=== PATIENT | female | born 1955 | race Caucasian/White ===

== ENCOUNTER → 2017-09-23 11:47 | Outpatient (REF) | payer MEDICAID, SELFPAY | LOC: LBN 11:47 | PROVIDERS: PCP Nurse Practitioner Family; Visit Provider Nurse Practitioner Gerontology | DX: R30.0 Dysuria (principal) | CPT/HCPCS: 87086 ==

== ENCOUNTER 2017-11-04 10:55 | Outpatient (REF) | payer MEDICAID, SELFPAY | END 2017-11-04 11:15 | LOC: LBN 10:55 | PROVIDERS: PCP Nurse Practitioner Family; Visit Provider Internal Medicine | DX: N39.0 Urinary tract infection, site not specified (principal) | CPT/HCPCS: 87086 ==

== ENCOUNTER 2018-05-20 01:03 | Outpatient (CLI) | payer MEDICAID, SELFPAY ==
[2018-05-20 09:16] LABS: Hemoglobin A1C 5.5 % (4.5-6.2)
[2018-05-20 10:13] LABS: ALT 32 U/L (12-78); AST 25 U/L (15-37); Albumin 3.8 g/dL (3.4-5.0); Alkaline Phosphatase 59 U/L (46-116); Anion Gap 9.1 mmol/L (3-11); BUN 15 mg/dL (7-18); Bilirubin, Total 0.4 mg/dL (0.2-1.0); CO2 28.9 mmol/L (21.0-32.0); CREATININE 0.79 mg/dL (0.55-1.02); Calcium 9.4 mg/dL (8.5-10.1); Chloride 104 mmol/L (98-107); Cholesterol 156 mg/dL (50-200); Glucose 94 mg/dL (70-100); HDL Cholesterol 47 mg/dL (40-60); LDL CHOLESTEROL 93 mg/dL (<100); Potassium 3.9 mmol/L (3.5-5.1); Sodium 142 mmol/L (136-145); Total Protein 7.3 g/dL (6.4-8.2); Triglyceride 80 mg/dL (30-150)
== END 2018-05-20 01:23 ==
PROVIDERS: PCP Nurse Practitioner Family; Visit Provider Nurse Practitioner Family
DX: E78.5 Hyperlipidemia, unspecified (principal); I10 Essential (primary) hypertension
CPT/HCPCS: 36415; 80053; 80061; 83721; 83036

== ENCOUNTER 2019-04-15 16:43 | Outpatient (REF) | payer MEDICAID, SELFPAY ==
--- NOTE | 2019-04-17 16:00 | PAPFT_PTH ---
PATIENT: Pushpa Menchaca LOC: [facility] U#:[id number] AGE/SX: 64/F ROOM: RE04/15/[address]: Charisse Gallardo, PhD WASHATERIA ATTENDANT : 1955 BED: DIS: 04/15/2019 SPEC #: [id number] RECD: 04/18/19 18:19 STATUS: LYSSA RENeftali #: [id number] ROSANNE: 04/17/19 16:[address]: Charisse Gallardo DEPT: [facility] Cytology RECD BY: Jodi Montoya Tissues: 1 - CX/ENDOCX FOR PAP SMEARS Procedures: PAP THIN PREP/[facility] Screening HPV DNA PROBE Comments: [id number] (CHLAMYDIA/GC)
[2019-04-19 12:55] LABS: Chlamydia Result Negative (Negative); GC Result Negative (Negative)
== END 2019-04-15 17:03 ==
LOC: LBN 16:43
PROVIDERS: PCP Nurse Practitioner; Visit Provider Nurse Practitioner
DX: Z12.4 Encounter for screening for malignant neoplasm of cervix (principal); Z11.51 Encounter for screening for human papillomavirus (HPV); Z11.3 Encounter for screening for infections with a predominantly sexual mode of transmission
CPT/HCPCS: 87491; 87591; 88142; 87624

== ENCOUNTER 2020-04-27 04:29 | Outpatient (CLI) | payer MEDICAID, SELFPAY ==
--- NOTE | 2020-04-27 12:21 | DI.MAMMO_ITS ---
EXAM: MAMMO SCREENING CLINICAL HISTORY: screening,z12.39 TECHNIQUE: Mammograms were interpreted according to the usual protocol including computer analysis w [employer] CAD system, tomosynthesis and C-view imaging. COMPARISON: 2010 through 2017 FINDINGS: The breasts are composed of scattered fibroglandular densities, Breast Density category B. No suspicious masses or suspicious microcalcifications are seen. No skin thickening or abnormal axillary lymph nodes are seen. There has been no significant change from prior exams. IMPRESSION: BI-RADS Category 1, Negative mammogram Yearly screening mammography is recommended. Breast Density - Category B, scattered fibroglandular densities. A negative radiographic report should not delay biopsy if a dominant or clinically suspicious mass is present. Up to ten percent of cancers are not identified on mammography. A negative report may reinforce clinical impression. Adenosis and dense breasts may obscure an underlying neoplasm. False positive reports average 6 to 10%. Patient will receive a letter notifying them of these results.
== END 2020-04-27 04:49 ==
PROVIDERS: PCP Nurse Practitioner; Visit Provider Nurse Practitioner
DX: Z12.31 Encounter for screening mammogram for malignant neoplasm of breast (principal); I10 Essential (primary) hypertension
CPT/HCPCS: 36415; 77063; 77067; 82565; 84132

== ENCOUNTER 2020-06-18 03:28 | Outpatient (CLI) | payer MEDICAID, SELFPAY ==
[2020-06-18 13:34] LABS: ALT 23 U/L (14-59); AST 16 U/L (15-37); Albumin 3.9 g/dL (3.4-5.0); Alkaline Phosphatase 66 U/L (46-116); Amylase 43 U/L (25-115); Bilirubin, Direct 0.1 mg/dL (0.0-0.2); Bilirubin, Total 0.2 mg/dL (0.2-1.0); Total Protein 7.4 g/dL (6.4-8.2)
[2020-06-19 14:55] LABS: Helicobacter pylori Ag, Feces Negative (Negative)
== END 2020-06-18 03:29 | disposition home or self-care (01) ==
LOC: LBO 03:28
PROVIDERS: PCP Nurse Practitioner; Visit Provider Nurse Practitioner
DX: R10.13 Epigastric pain (principal); R10.11 Right upper quadrant pain; R10.12 Left upper quadrant pain
CPT/HCPCS: 36415; 80076; 87338; 82150

== ENCOUNTER 2020-06-22 04:21 | Outpatient (CLI) | payer MEDICAID, SELFPAY ==
--- NOTE | 2020-06-22 06:45 | DI.US_ITS ---
Exam(s) US ABDOMEN EXAM: US ABDOMEN CLINICAL HISTORY: LUQ AND RUQ abd pain,EPIGASTRIC PAIN TECHNIQUE: Ultrasound abdomen performed using standard protocol. COMPARISON: No exams were available for comparison FINDINGS: LIVER: 15.5 cm in length. Moderately increased echogenicity diffusely consistent with hepatic steato sis.. No focal liver lesions are seen.. GALLBLADDER: No evidence of cholelithiasis. There is a question of a minimal amount of sludge versus artifact. No evidence of wall thickening. No pericholecystic fluid identified. MCBRIDE'S SIGN: Negative. BILIARY SYSTEM: No intrahepatic or extrahepatic biliary ductal dilation. KIDNEYS: Kidneys are symmetric in size. No evidence of renal calculi. No evidence of hydronephrosis. No renal mass or cyst identified. PANCREAS: Normal where visualized. SPLEEN: Not enlarged. ABDOMINAL AORTA AND IVC: Visualized portions normal caliber. ASCITES: None seen. IMPRESSION: Moderate hepatic steatosis. Question of a small amount of sludge versus artifact. No evidence of st ones or acute cholecystitis. DATA REPOSITORY:
== END 2020-06-22 04:41 ==
PROVIDERS: PCP Nurse Practitioner; Visit Provider Nurse Practitioner
DX: R10.11 Right upper quadrant pain (principal); R10.12 Left upper quadrant pain; R10.13 Epigastric pain; K76.0 Fatty (change of) liver, not elsewhere classified
CPT/HCPCS: 76700

== ENCOUNTER 2020-09-17 06:34 | Day surgery (SDC) | payer MEDICAID, SELFPAY ==
--- NOTE | 2020-09-17 06:39 | W.COLOREPORT ---
Date of service: 09/17/20 Time of Service: :33 Colonoscopy Report Date of procedure: 09/17/20 Pre-op diagnosis general: Colon Cancer Screening Post-op diagnosis procedure note: other (diverticulosis) Procedure: Colonoscopy Surgeon: Shayna Mario Anesthesia Type: General:No Airway (ASA 2/Gene Lakhani, PATRICK) Estimated blood loss (mL): 0 Pathology: none sent Complications: None Disposition: same day Indications: The patient is here for Colonoscopy pre-op. Her last screening was in 2010 and was remarkable for hyperplastic polyp. She has no family history of colon cancer. She reports a change in bowel habits, that include bouts of diarrhea 1-2x/wk. -Discussed colonoscopy bowel prep as well as the procedure. Discussed possible complications of the procedure to include bleeding, pain, perforation, missed small lesion/polyp, sore throat, aspiration and adverse reaction to the medications. Questions were answered to patient?s satisfaction. No guarantees were implied or given. Prep: Miralax/Dulcolax Procedure Start Time: Procedure End Time: :51 Retraction Time: 8 minutes Findings: Sigmoid diverticulosis Procedure Description: After informed consent was obtained the patient was taken to the procedure room and placed in a left decubitous position. Monitors were applied and a time out was done. The patients name, date of , procedure, allergies to medications and metal in their body was reviewed. The patient was then sedated. Once sedated and comfortable a rectal exam was done. External exam was normal. Internal exam revealed a normal sphincter tone and no palpable masses. The scope was then introduced and retro-flexed. No internal hemorrhoids, polyps or masses were identified on retro-flexion. The scope was then advanced to the cecum without difficulty. The ileocecal vlave and appendiceal orifice were identified. The prep was good. The scope was then slowly retracted over 8 minutes back into the rectum. There were no polyps. There was moderate sigmoid diverticulosis noted. The scope was removed and the patient was woken up and taken back to Same day surgery in stable condition. The patient tolerated the procedure well and there were no immediate complications. Follow up: The patient should follow up in 10 years unless they develop changes in bowel habits or other new gastrointestinal complaints.
--- NOTE | 2020-09-17 06:41 | W.PM.DSUDISC ---
Discharge Plan Disposition Patient Disposition: HOME Condition: Good Discharge Details Reason For Visit: Colonoscopy Attending Provider: Shayna Mario Primary Care Provider: Charisse Gallardo Home Meds and New Rx's Prescriptions: Continued multivitamin Tablet 1 tab PO Q OTHER DAY RF: 0 tolterodine [Detrol LA] 2 mg capsule,extended release 24hr 2 mg PO DAILY Qty: 90 RF: 4 prochlorperazine 25 mg suppository 25 mg PA BID PRN (Reason: nausea and vomiting) Qty: 6 RF: 0 ascorbic acid (vitamin C) 500 mg capsule 500 mg PO DAILY RF: 0 Excedrin Extra Strength 250-250-65 mg tablet 1 tab PO ONCE RF: 0 rizatriptan 10 mg tablet,disintegrating See Rx Instructions PO .COMPLEX MDD 2 tabs Qty: 30 RF: 4 hydrochlorothiazide 25 mg tablet 25 mg PO DAILY Qty: 90 RF: 3 loratadine 10 mg tablet 10 mg PO DAILY PRN (Reason: allergy symptoms) Qty: 90 RF: 4 lisinopril 30 mg tablet 30 mg PO DAILY Qty: 90 RF: 4 Discontinued polyethylene glycol 3350 17 gram/dose powder 238 g PO ONCE Qty: 238 RF: 0 bisacodyl [Dulcolax (bisacodyl)] 5 mg tablet,delayed release (DR/EC) 5 mg PO ONCE Qty: 4 RF: 0 Discharge Instructions Instructions: Diverticulosis (DC) Additional Instructions: Findings: Diverticulosis Follow up: 10 years Please call if you develop: fevers >101.5 Nausea or Vomiting Abdominal pain that is not transient Rectal bleeding that is more then a tbsp A hard abdomen and inability to pass gas DAY SURGERY UNIT POST ENDOSCOPY INSTRUCTIONS Instructions for everyone who is given Anesthesia: For your safety, please do the following for the next 24 Hours: a. Do not drive or operate dangerous equipment b. Do not drink alcohol beverages or use any recreational drugs for the first 24 hours or while taking pain medications. The medications in your body may have a reaction that can be dangerous. c. Do not make any important decisions or sign any important papers 1. Generally there are no restrictions on your activity after a day or so has gone by, but you may feel a bit fatigued for a few days. 2. After you arrive home you may have a light meal and return to a normal diet as you can tolerate it without feeling sick to your stomach. 3. After surgery, you may feel pain or discomfort. This should be only transient, but if it persists please contact your doctor. 4. If there are any questions regarding the findings of your procedure, please feel free to contact your doctor. 6. If you are unable to contact your doctor with a problem, contact the hospital at [phone]. 7. Continue all your regular medications unless directed otherwise. I understand the above instructions and have no questions. Signature of Patient or Responsible Adult Escort Date/Time Name of Responsible Adult Escort Signature of Nurse Date/Time Activity:: Activity as Tolerated Diet:: high fiber diet Discharge Orders Discharge Orders: Discharge Order (Routine); Ordered 09/17/20 Ordered By: Shayna Mario
[2020-09-17 06:57] VITALS: BP 140/87; PULSE 74; RESP 16; TEMP 36.2; O2SAT 97
--- NOTE | 2020-09-17 07:01 | W.ANESPRE ---
General Info Date of Service Date Performed: 09/17/20 Height: 5 ft 4 in Weight: 77.791 kg Body Mass Index (BMI): 29.4 Surgical Procedure: Operation Date: 09/17/20 07:35 Proposed Procedures Side Surgeon p Colonoscopy Shayan Mario MD Meds Allergies and Home Medications Allergies Allergy/AdvReac Type Severity Reaction Status Date / Time meperidine HCl [From Demerol] AdvReac Severe VOMITING Verified 09/17/20 06:52 sumatriptan [From Imitrex] AdvReac Intermediate heart Verified 09/17/20 06:52 pounding sumatriptan succinate AdvReac Intermediate heart Verified 09/17/20 06:52 [From Imitrex] pounding naratriptan AdvReac Mild arm Verified 09/17/20 06:52 weakness and fatigue Home Medication Medication Instructions Recorded multivitamin 1 tab PO Q OTHER DAY tab 09/30/18 loratadine 10 mg tablet 10 mg PO DAILY PRN #90 tab 09/30/19 prochlorperazine 25 mg rectal 25 mg OR BID PRN #6 ea 04/19/20 suppository tolterodine 2 mg capsule,extended 2 mg PO DAILY #90 cap 04/30/20 release 24 hr hydrochlorothiazide 25 mg tablet 25 mg PO DAILY #90 tab 07/31/20 rizatriptan 10 mg disintegrating See Rx Instructions PO .COMPLEX 07/31/20 tablet #30 tab MDD 2 tabs lisinopril 30 mg tablet 30 mg PO DAILY #90 tab 08/02/20 ascorbic acid (vitamin C) 500 mg 500 mg PO DAILY 08/23/20 capsule [id number]-[id number]-ipuxymnz 250 1 tab PO ONCE 08/23/20 mg-250 mg-65 mg tablet Current Visit Medications: Current Medications Generic Name Dose Route Start Last Admin Trade Name Freq PRN Reason Stop Dose Admin Hyoscyamine Sulfate 0.125 mg 09/17/20 06:42 Hyoscyamine 0.125 Mg Sl/Oral/Chew SL DIRECTED PRN Ringer's Solution 1,000 mls @ 80 mls/hr 09/17/20 06:00 IV 10/14/20 23:59 INFUSION FOR[facility] IV Miscellaneous Supplies 1 each 09/17/20 06:00 Iv Access IV 10/14/20 23:59 DIRECTED [facility] Ondansetron HCl 4 mg 09/17/20 06:42 Ondansetron 4 Mg/2 Ml Vial IVP Q4H PRN PRN Nausea / Vomiting Sodium Chloride 0 ml 09/17/20 06:00 Normal Saline Flush 10 Ml Syr IV 10/14/20 23:59 PRN PRN Sodium Chloride 0 ml 09/17/20 06:00 Normal Saline 10 Ml Vial IJ 10/14/20 23:59 DIRECTED PRN Sterile Water 0 ml 09/17/20 06:00 Water,Injection,Sterile 10 Ml Vial IJ 10/14/20 23:59 DIRECTED PRN PFSH Active Problems Active Problems: Problem Status Onset Code Tendinitis, de Quervain's M65.4 Migraine headache G43.909 Essential hypertension I10 Posterior vaginal wall prolapse N81.6 Medical History Medical History Chronic low back pain Essential hypertension Exercise-induced asthma Hyperlipidemia Migraine headache Pancolonic diverticulosis Posterior vaginal wall prolapse MENDOZA (stress urinary incontinence, female) Surgical History Surgical History History of bilateral tubal ligation (~10/2004) History of suburethral sling procedure (~05/2003) By Dr. Kapoor S/P colonoscopy (08/09/10) Tobacco Smoking/Tobacco Use Status: Never Passive smoking exposure: Yes Second hand exposure: Yes Alcohol Alcohol Intake: current Alcohol intake frequency: a few times a month Alcohol type: beer and wine Substance Use Substance use: Never Substance use type: does not use Prental History History 6 Para Hx # Term Pregnancies Multiple births Hx # Pregnancies Ectopic pregnancies AB induced Hx Number of Living Children 5 AB spontaneous 1 Vital Signs and Lab Results Lab Results Blood Type / Crossmatch: No Data to Display Complete Blood Count: No Data to Display Complete Metabolic Panel: No Data to Display Liver Function Panel: No Data to Display Coagulation Panel: No Data to Display Cardiac Panel: No Data to Display Arterial Blood Gas: No Data to Display Venous Blood Gas: No Data to Display Pancreas Panel: No Data to Display Thyroid Panel: No Data to Display Infectious Disease: No Data to Display Blood Cultures: No Data to Display Toxicology Panel: No Data to Display Anesthesia Assessment and Plan Anesthesia History Personal History: No History of Anesthesia Complications Family History: No Family History of Anesthesia Complications Exercise Tolerance Exercise Tolerance: Metabolic Equivalents>4 Pertinent Negatives Pertinent Negatives: No Symptoms of GERD Cardiac & Pulmonary Exam Cardiac Exam: Normal S1/S2 Heart Sounds Pulmonary Exam: Clear Bilateral Breath Sounds Airway Exam Known Difficult Airway: No Mallampati Class: 2 Mouth Opening: Normal (> 3cm) Thyromental Distance: Greater than 3 cm Neck Range of Motion: Full ROM Neck Circumference: Normal Teeth Condition: Normal Dentition ASA Classification ASA Score: ASA 2 Emergency Case?: No NPO Status NPO Status: NPO Clears >2 hours, Solids >8 hours Anesthesia Plan Resuscitation Status: Full Code Anesthesia Technique: General Anesthesia Airway Planned: Natural Airway Monitors Used: Standard Monitors
[2020-09-17] MEDS: Lactated Ringers 1,000 ML 80 ML IV (07:15)
[2020-09-17 07:21] VITALS: BMI 29.4
[2020-09-17 07:56] VITALS: BP 131/69; PULSE 74; RESP 16; TEMP 36.4; O2SAT 95
--- NOTE | 2020-09-17 08:18 | W.ANESPOSTOP ---
Postoperative Evaluation Date, Time and Location Date Performed: 09/17/20 Time Performed: 08:00 Patient Location: Day Surgery Unit Vital Signs Most Recent Imported Vital Signs: Most Recent Vital Signs Temp Pulse Resp BP Pulse Ox 36.4 C L 74 16 131/69 95 09/17/20 07:56 09/17/20 07:56 09/17/20 07:56 09/17/20 07:56 09/17/20 07:56 Pain Score Most Recent Pain Score: Most Recent Pain Score Pain Level 0 09/17/20 07:56 Assessment Mental Status: Awake (Alert & Oriented to Patient Baseline) Airway and Respiratory Function: Patent airway with normal (patient baseline) respiratory exam Cardiovascular Function: Hemodynamically Stable Hydration Status: Adequately Hydrated Nausea & Vomiting: No Nausea or Vomiting Pain: Pt. Denies Any Pain Peripheral Nerve Block: Patient did not receive a nerve block
[2020-09-17 08:29] VITALS: BP 131/69; PULSE 72; RESP 18; TEMP 36.3; O2SAT 96
== END 2020-09-17 08:50 | disposition home or self-care (01) ==
PROVIDERS: PCP Nurse Practitioner; Visit Provider Surgery
PROC: 0DJD8ZZ Inspection of Lower Intestinal Tract, Via Natural or Artificial Opening Endoscopic (ICD-10-PCS; CPT 45378; principal; 2020-09-17 07:30)
DX: Z12.11 Encounter for screening for malignant neoplasm of colon (principal); K57.30 Diverticulosis of large intestine without perforation or abscess without bleeding
CPT/HCPCS: 45378

== ENCOUNTER → 2021-05-01 10:29 | Outpatient (BNVA) | payer MEDICARE, MEDICAID, SELFPAY | PROVIDERS: PCP Family Medicine; Referring Provider Nurse Practitioner; Visit Provider Nurse Practitioner Gerontology | DX: N39.41 Urge incontinence (principal) | CPT/HCPCS: 99214 ==

== ENCOUNTER 2021-05-28 02:19 | Outpatient (CLI) | payer MEDICARE, MEDICAID, SELFPAY ==
[2021-05-28 11:22] LABS: Anion Gap 7.1 mmol/L (3-11); BUN 14 mg/dL (7-18); CO2 29.9 mmol/L (21.0-32.0); CREATININE 0.8 mg/dL (0.55-1.02); Calcium 9.2 mg/dL (8.5-10.1); Chloride 104 mmol/L (98-107); Glucose 125 mg/dL (74-106); Potassium 3.8 mmol/L (3.5-5.1); Sodium 141 mmol/L (136-145)
[2021-05-28 11:35] LABS: Calculated LDL 95 mg/dL (<100); Cholesterol 189 mg/dL (<200); HDL Cholesterol 47 mg/dL (40-60); Triglyceride 238 mg/dL (<150)
== END 2021-05-28 02:20 | disposition home or self-care (01) ==
LOC: LBO 02:19
PROVIDERS: PCP Family Medicine; Visit Provider Family Medicine
DX: I10 Essential (primary) hypertension (principal)
CPT/HCPCS: 36415; 80048; 80061

== ENCOUNTER 2021-09-27 11:13 | Inpatient (IN) | payer MEDICARE, MEDICAID, SELFPAY ==
[2021-09-27] VITALS (88 sets, daily range): BP systolic 55–187; BP diastolic 39–131; PULSE 74–116; RESP 10–39; TEMP 35.3–37.4; O2SAT 90–98; BMI 28.3
--- NOTE | 2021-09-27 11:15 | RT.EKG_ITS ---
APPROVED REPORT Exam: Resting ECG Reason for Exam: dizziness Patient Location: E HR:107 bpm ECG Measurements Heart Rate 107 AXIS IL 140 P 62 QRSd 131 QRS -12 QT 367 T 144 QTc 490 Conclusion Sinus tachycardia...rate> 99 Probable left atrial enlargement...P >50mS, <-0.10mV V1 Left bundle branch block...QRSd>120, broad/notched R. Sinus. LBBB. No STEMI. No old EKG to compare. I have reviewed and interpreted ECG and agree with software generated interpretation.
[2021-09-27] MEDS: Ondansetron 4 MG/2 ML VIAL IVP ×2 (11:42→22:50)
[2021-09-27] MEDS: Pantoprazole 40 MG VIAL 80 MG IVP (11:46)
--- NOTE | 2021-09-27 11:48 | ED.GENADUL_ITS ---
Discharge Plan Disposition Patient Disposition: [facility] INPATIENT Condition: Critical Discharge Details Clinical Impression: Acute upper GI bleeding Admit Date/Time: 09/27/21 14:02 Admit Provider: Sharon Manley Attending Provider: Sharon Manley Primary Care Provider: Radha Britton ED Provider: Deborah Hansen Discharge Data Discharge Date/Time-TO BE ENTERED AT DEPARTURE: 09/27/21 13:38 Medical Decision Making 1120 -- 66yo F with a history of migraines, hypertension and GERD presents with hematemesis since 1030 this am. Denies any history of anticoagulation. She does admit to upset stomach this morning prior to onset of vomiting. Nursing reported that patient vomited dark red blood and had a near syncopal episode in triage. Heart rate 110s. Blood pressure 145/114. Vomitus with gastroccult positive for blood. Heart rate 110s. Oxygen saturation 97% on room air. She appears comfortable and answering questions appropriately. Blood pressure 160/92. Her abdomen is soft and nontender. Differential diagnosis includes PUD, varices, esophagitis. Will obtain screening labs. Discussed with radiologist and cleared for IV contrast CT chest/abdomen/pelvis. Will order IV Zofran and IV Protonix. Will start normal saline infusion at 150 cc/hr. 1150 -- nursing informed that patient's blood pressure now more hypotensive at 96/49. Patient is feeling tired and weak. Will order 2 units of uncrossed mat ched blood. 1200 -- Pt became significantly hypotensive with a systolic blood pressure as low as 55. At this point she was significantly symptomatic, diaphoretic and near syncopal. Case discussed with Dr. Manley who requested rapid infuser. She is requesting 1 g of TXA which was ordered. She will come to the ED to see patient. 1220 -- BP improving. 120/63. Patient reports she feels better. Dr. Manley will take patient to the OR for upper endoscopy. Pt endorses that she takes 4 tabs of Excedrin daily which contains 325mg aspirin in each tab for several years for migraines. 1230 -- BP 132/77. Patient endorses she continues to feel better, skin color improved. Medical Records Medical records reviewed: Yes I reviewed the patient's medical records. Imaging Data Radiologic Study: Radiologist's impression: XR PORTABLE CHEST AP CLINICAL HISTORY:? vomiting blood, r/o free air TECHNIQUE:? 2D digital imaging was performed. COMPARISON:? No exams were available for comparison FINDINGS: LUNGS: Clear. No pleural abnormality seen. HEART: Normal. AORTA: Normal. BONES: Unremarkable for age.? Soft tissues: Unremarkable. IMPRESSION: No acute? findings. Lab Data Lab results reviewed: Yes I reviewed the patient's lab results. Labs: Laboratory Tests Range/Units 09/27/21 09/27/21 09/27/21 11:40 11:40 11:40 WBC (4.4-10.8) 10^3/uL 13.15 H RBC (3.93-5.22) 10^6/uL 4.66 Hgb (11.2-15.7) g/dL 13.6 Hct (36.0-46.0) % 39.8 MCV (80-95) fL 85 MCH (27.0-33.0) pg 29.2 MCHC (32.0-36.0) % 34.2 RDW (11.7-14.6) % 12.3 Plt Count (130-400) 10^3/uL 399 MPV (8.0-11.0) fL 9.4 Immature Gran % 0.4 Neutrophils % 61.6 Lymphocytes % 25.0 Monocytes % 7.0 Eosinophils % 5.7 Basophils % 0.3 Nucleated RBC % (0.0-0.3) % 0.0 Absolute Neutrophils (1.2-6.7) 10^3/uL 8.10 H Absolute Lymphocytes (1.2-3.4) 10^3/uL 3.29 Absolute Monocytes (0.1-0.8) 10^3/uL 0.92 H Absolute Eosinophils (0.0-0.7) 10^3/uL 0.75 H Absolute Basophils (0.0-0.2) 10^3/uL 0.04 PT (9.3-11.0) sec 10.2 INR (0.9-1.1) 1.0 APTT (21.0-27.5) sec 19.9 L Sodium (136-145) mmol/L 142 Potassium (3.5-5.1) mmol/L 3.9 Chloride (98-107) mmol/L 104 Carbon Dioxide (21.0-32.0) mmol/L 26.4 Anion Gap (3-11) mmol/L 11.6 H BUN (7-18) mg/dL 18 Creatinine (0.55-1.02) mg/dL 0.9 Estimated GFR/1.73 m2 (mL/min/1.73m2) >= 60.00 Glucose (74-106) mg/dL 166 H Calcium (8.5-10.1) mg/dL 8.8 Magnesium (1.8-2.4) mg/dL 1.8 Total Bilirubin (0.2-1.0) mg/dL 0.3 AST (15-37) U/L 19 ALT (14-59) U/L 21 Alkaline Phosphatase (46-116) U/L 55 Troponin I (<or=60) ng/L < 50 Total Protein (6.4-8.2) g/dL 7.0 Albumin (3.4-5.0) g/dL 3.5 COVID-19 Source SARS-CoV-2 (PCR) (Negative) Patient ABO/Rh Antibody Screen Crossmatch Range/Units 09/27/21 09/27/21 11:40 11:58 WBC (4.4-10.8) 10^3/uL RBC (3.93-5.22) 10^6/uL Hgb (11.2-15.7) g/dL Hct (36.0-46.0) % MCV (80-95) fL MCH (27.0-33.0) pg MCHC (32.0-36.0) % RDW (11.7-14.6) % Plt Count (130-400) 10^3/uL MPV (8.0-11.0) fL Immature Gran % Neutrophils % Lymphocytes % Monocytes % Eosinophils % Basophils % Nucleated RBC % (0.0-0.3) % Absolute Neutrophils (1.2-6.7) 10^3/uL Absolute Lymphocytes (1.2-3.4) 10^3/uL Absolute Monocytes (0.1-0.8) 10^3/uL Absolute Eosinophils (0.0-0.7) 10^3/uL Absolute Basophils (0.0-0.2) 10^3/uL PT (9.3-11.0) sec INR (0.9-1.1) APTT (21.0-27.5) sec Sodium (136-145) mmol/L Potassium (3.5-5.1) mmol/L Chloride (98-107) mmol/L Carbon Dioxide (21.0-32.0) mmol/L Anion Gap (3-11) mmol/L BUN (7-18) mg/dL Creatinine (0.55-1.02) mg/dL Estimated GFR/1.73 m2 (mL/min/1.73m2) Glucose (74-106) mg/dL Calcium (8.5-10.1) mg/dL Magnesium (1.8-2.4) mg/dL Total Bilirubin (0.2-1.0) mg/dL AST (15-37) U/L ALT (14-59) U/L Alkaline Phosphatase (46-116) U/L Troponin I (<or=60) ng/L Total Protein (6.4-8.2) g/dL Albumin (3.4-5.0) g/dL COVID-19 Source Nasal/Nares SARS-CoV-2 (PCR) (Negative) Negative Patient ABO/Rh A Positive Antibody Screen NEGATIVE Crossmatch See Detail ECG Data Attestation: I personally reviewed and interpreted this ECG (s) as follows: Interpretation: Rate of 107, sinus, left bundle branch block, no stemi, no old EKG to compare. HPI General Mode of arrival: ambulatory . Date/Time Provider Initiated Documentation: 09/27/21 11:25 . Limitations to Documentation: no limitations . Information obtained by: patient . HPI Narrative: Pt is a 66yo F with a h/o migraine, hypertension and GERD who presents to the ED w/ a c/o vomiting blood since 1030 this morning. Patient states she feels like she vomited brown and dark red blood approximately 2 quarts. She denies any similar history in the past. She denies any recent fever, illness, antibiotics or new medications. She states she is not taking anticoagulation. She states prior to onset of vomiting she noted she had an unsettling feeling in my stomach . She admits to some nausea but denies any significant abdominal pain. She states prior to onset of her vomiting blood this morning she took 2 Excedrin tablets. She states she has a history of migraines and usually takes about 4 tabs of Excedrin daily for several years. She states she does take 1-2 tabs of 400mg motrin weekly for her headaches. She denies any other additional overdose of medication. She denies any fever and states her last bowel movement was yesterday and brown and formed. She denies any melena or hematochezia. Related Data Home Medications Medication Instructions Recorded Confirmed ascorbic acid (vitamin C) 500 mg 500 mg PO DAILY 08/23/20 09/27/21 capsule [id number]-[id number] 250 1 tab PO ONCE 08/23/20 09/27/21 mg-250 mg-65 mg tablet (Excedrin Extra Strength) loratadine 10 mg tablet 10 mg PO DAILY PRN allergy 01/08/21 09/27/21 symptoms #90 tabs tolterodine 2 mg capsule,extended 2 mg PO DAILY #90 caps 05/01/21 09/27/21 release 24 hr (Detrol LA) hydrochlorothiazide 25 mg tablet 25 mg PO DAILY #90 tabs 05/03/21 09/27/21 lisinopril 30 mg tablet 30 mg PO DAILY #90 tabs 05/03/21 09/27/21 rizatriptan 10 mg disintegrating See Rx Instructions PO .COMPLEX #9 05/03/21 09/27/21 tablet tabs Previous Rx's Medication Instructions Recorded loratadine 10 mg tablet 10 mg PO DAILY PRN allergy 01/08/21 symptoms #90 tabs tolterodine 2 mg capsule,extended 2 mg PO DAILY #90 caps 05/01/21 release 24 hr (Detrol LA) hydrochlorothiazide 25 mg tablet 25 mg PO DAILY #90 tabs 05/03/21 lisinopril 30 mg tablet 30 mg PO DAILY #90 tabs 05/03/21 rizatriptan 10 mg disintegrating See Rx Instructions PO .COMPLEX #9 05/03/21 tablet tabs Allergies Allergy/AdvReac Type Severity Reaction Status Date / Time meperidine HCl [From Demerol] AdvReac Severe VOMITING Verified 05/03/21 13:57 sumatriptan [From Imitrex] AdvReac Intermediate heart Verified 05/03/21 13:57 pounding sumatriptan succinate AdvReac Intermediate heart Verified 05/03/21 13:57 [From Imitrex] pounding naratriptan AdvReac Mild arm Verified 05/03/21 13:57 weakness and fatigue General Stated Complaint: GI Bleed MEIR: 2 Review of Systems All systems reviewed & are unremarkable except as noted in HPI and below Constitutional Constitutional: Denies chills, Denies excessive sweating, Denies fatigue, Denies fever(s), Denies weakness and Denies weight loss Eyes Eyes: Reports system reviewed and no additional complaints, except as documented and Denies blurry vision ENT Ears, Nose, Mouth, and Throat: Denies vertigo, Denies dizziness, Denies otalgia, Denies nasal congestion, Denies sore throat and Denies throat swelling Cardiovascular Cardiovascular: Denies chest pain, Denies syncope, Denies rapid heart rate and Denies dyspnea Respiratory Respiratory: Denies chest congestion, Denies cough, Denies pain on inspiration and Denies dyspnea Gastrointestinal Gastrointestinal: Denies abdominal pain, Denies diarrhea, Denies vomiting and Reports hematemesis Genitourinary Genitourinary: Denies hematuria, Denies dysuria and Denies flank pain Musculoskeletal Musculoskeletal: Denies back pain and Denies joint swelling Integumentary/Breasts Skin/Breast: Denies lesions and Denies rash Neurologic Neurologic: Denies behavioral changes, Denies confusion, Denies vertigo, Denies dizziness, Denies syncope, Denies localized weakness and Denies weakness Psychiatric Psychiatric: Denies behavioral changes, Denies confusion and Denies depression Endocrine Endocrine: Denies excessive sweating and Denies fatigue Hematologic/Lymphatic Hematologic/Lymphatic: Denies easy bruising and Denies lymphadenopathy Allergic/Immunologic Allergic/Immunologic: Denies throat swelling PFSH All Active Problems (Updated 09/27/21 @ 20:50 by Sharon Manley DO) Duodenal ulcer (Acute) Probably due to Excedrin GERD without esophagitis (Acute) Chronic low back pain (Chronic) right sided piriformis; managed with stretching, exercises, OTC meds. Migraine headache (Chronic) Essential hypertension (Chronic) Posterior vaginal wall prolapse (Chronic) Medical History History of COVID-19 (~02/2021) no complications Hyperlipidemia Pancolonic diverticulosis Surgical History History of bilateral tubal ligation (~10/2004) and endometrial ablation History of suburethral sling procedure (~05/2003) By Dr. Kapoor Normal colonoscopy (~09/2020) Family History Mother Heart disease Pacemaker Father , at 66 of CHF Essential hypertension Heart disease first IN age 40 Hyperlipidemia Myocardial infarction Triple bypass age 44; frontal lobe aneurysm age 64, chf heart failure age 66 Brain aneurysm Stroke Sister Heart disease Hyperlipidemia Sister No problems noted. Sister No problems noted. Brother Heart disease Quintuple bypass Brother Heart disease S/p PCI Brother , at 14mo Complete trisomy 21 syndrome Brother No problems noted. Son Asthma Daughter Asthma Ulcerative colitis Daughter Asthma Daughter Asthma Daughter Asthma Maternal Grandfather , age 76 Myocardial infarction Heart disease Maternal Grandmother , age 52 Hodgkin's disease Paternal Grandfather , age 70 Heart disease Myocardial infarction Paternal Grandmother , age 70ish Stroke Social History Smoking/Tobacco Use Status: Never Second Hand Exposure: Yes Smoking risk assessment performed?: Yes Alcohol Intake: current Alcohol Intake frequency: holidays/special occasions only Alcohol type: wine Drug use: Never Substance use type: does not use Household members: spouse, children and adopted family Number of Children: 6 number of grandchildren: 12 current occupation: Works as a seamstress and tailor. Pets and animals: Yes Pets and animals: cat(s) and fish Sexually active: Yes Do you think of yourself as: straight/heterosexual Current gender identity: female What is your relationship status?: How often do you talk on the phone with friends or family?: twice per week How often do you get together with friends or relatives?: once per week How often do you attend jainism or islam services?: 4 or more times per year Do you belong to any clubs or organized social groups?: no Panel score (0-1 are the most socially isolated patients): 3 What type of physical activity do you participate in: walking, aerobic and weight lifting Duration: 15-30 minutes/day Frequency: 3-4 times per week Essie/Congregational: Anglican Special essie needs: No Seatbelt use: always Helmet use: Yes Helmet use: sometimes Drive intox or ride w/intox otr hazmat company driver: No Do you feel safe at home: Yes Do you feel safe in your relationship?: Yes Female Reproductive History Menstrual Menopause type: natural Date of menopause: 02/10/08 History History 6 Para Hx # Term Pregnancies Multiple births Hx # Pregnancies Ectopic pregnancies AB induced Hx Number of Living Children 5 AB spontaneous 1 Exam Const General: cooperative and healthy appearing Orientation: alert, awake and oriented x3 HENMT Head: normal to inspection Ears: hearing grossly normal bilaterally, external ears normal and TM's normal bilaterally General nose exam: external nose normal Face and sinus: normal facial exam Mouth: oral mucosae normal Teeth and gingiva: dentition normal Throat: posterior oropharynx normal Eyes General: appearance normal, both eyes and all related structures Eyelids: eyelids normal Pupils: PERRL EOM: EOM intact bilaterally Neck Neck: normal visual inspection Lymphatic: no lymphadenopathy noted Chest Chest: normal inspection of the chest Resp Effort & Inspection: normal respiratory effort and able to speak in complete sentences Auscultation: clear to auscultation bilaterally Cardio Rate: regular rate Rhythm: regular rhythm GI Inspection: normal to inspection Palpation: soft, not firm, no guarding, no hepatosplenomegaly, no masses and nontender Auscultation: hypoactive bowel sounds Back/Spine/Pelvis Back: no CVA tenderness Skin General skin exam: no rashes or lesions noted Neuro General: patient alert and patient awake Cognition: normal cognition Speech: speech normal Gait: normal gait Motor: muscle tone normal throughout Sensory Exam: no sensory deficits noted Extrem General: normal to inspection, full ROM and capillary refill normal Psych Appearance: grossly normal Mental Status: mental status grossly normal Speech and Movement: speech and movement normal Affect: normal affect Thought Process: normal Course Vital Signs Vital signs: Vital Signs Temperature 95.5 F L 09/27/21 11:20 Pulse 116 H 09/27/21 11:20 Respiratory Rate 18 09/27/21 11:20 Blood Pressure 145/114 H 09/27/21 11:20 Pulse Oximetry 97 09/27/21 11:20 Temperature 95.5 F L 09/27/21 11:20 Temperature Source Temporal Artery Scan 09/27/21 11:20 Pulse 107 H 09/27/21 11:29 Respiratory Rate 20 09/27/21 11:29 Respiratory Effort 09/27/21 11:33 Blood Pressure 165/92 H 09/27/21 11:29 Blood Pressure Position Supine 08/19/22 11:29 Pulse Oximetry 98 09/27/21 11:29 Oxygen Delivery Method Room Air 09/27/21 11:29 Oxygen Flow Rate 0 09/27/21 11:29 Pain Level 4 09/27/21 11:35 Critical Care Time Critical Care Time Critical Care Time: Yes Total Critical Care Time: 70 Attestation: I spent 70 minutes of critical care time with this patient. This does not include time spent on separately reported billable procedures. PAWSS Have you Been Recently Intoxicated or Drunk Within the Last 30 days?: No Have you Ever Experienced Previous Episodes of Alcohol Withdrawal?: No Have you ever Experienced Withdrawal Seizures?: No Have you ever Experienced Delirium Tremens(DT)s?: No Have you ever undergone Alcohol Rehabilitation Treatment (i.e, inpt ot outpatient treatment programs)?: No Have you ever Experienced Blackouts?: No Have you ever Combined Alcohol with other Downers within the last 90 days?: No Have you ever Combined Alcohol with any other Substance of Abuse during the last 90 days?: No Positive Blood Alcohol level on Presentation? [PCS.BAL]: No Evidence of Increased Autonomic Activity (i.e. HR>120, tremor, sweating, agitation, nausea)?: No Result: 0
[2021-09-27 11:51] LABS: Eosinophils % 5.7; HCT 39.8 % (36.0-46.0); HGB 13.6 g/dL (11.2-15.7); MCH 29.2 pg (27.0-33.0); MCHC 34.2 % (32.0-36.0); MCV 85 fL (80-95); MPV 9.4 fL (8.0-11.0); Neutrophils % 61.6; Platelet Count 399 10^3/uL (130-400); RBC 4.66 10^6/uL (3.93-5.22); RDW 12.3 % (11.7-14.6); RDW-SD 38.6 fL; WBC 13.15 10^3/uL (4.4-10.8)
[2021-09-27 11:52] LABS: Abs Immature Grans 0.05 10^3/uL (0.0-0.06); Absolute Basophil Count 0.04 10^3/uL (0.0-0.2); Absolute Eosinophil Count 0.75 10^3/uL (0.0-0.7); Absolute Lymphocyte Count 3.29 10^3/uL (1.2-3.4); Absolute Monocyte Count 0.92 10^3/uL (0.1-0.8); Basophils % 0.3; Immature Grans % 0.4
[2021-09-27] MEDS: Normal Saline 1,000 ML 150 ML IV ×3 (11:55→21:12)
[2021-09-27 12:02] LABS: Source Nasal/Nares
[2021-09-27 12:06] LABS: PTT Activated 19.9 sec (21.0-27.5); Prothrombin Time 10.2 sec (9.3-11.0)
[2021-09-27 12:11] LABS: ALT 21 U/L (14-59); AST 19 U/L (15-37); Albumin 3.5 g/dL (3.4-5.0); Alkaline Phosphatase 55 U/L (46-116); Anion Gap 11.6 mmol/L (3-11); BUN 18 mg/dL (7-18); Bilirubin, Total 0.3 mg/dL (0.2-1.0); CO2 26.4 mmol/L (21.0-32.0); CREATININE 0.9 mg/dL (0.55-1.02); Calcium 8.8 mg/dL (8.5-10.1); Chloride 104 mmol/L (98-107); Glucose 166 mg/dL (74-106); Magnesium 1.8 mg/dL (1.8-2.4); Potassium 3.9 mmol/L (3.5-5.1); Sodium 142 mmol/L (136-145); Troponin I < 50 ng/L (<or=60)
--- NOTE | 2021-09-27 12:33 | ANES.PREOP_ITS ---
General Info Date of Service Date Performed: 09/27/21 Height: 5 ft 5 in Weight: 77.111 kg Body Mass Index (BMI): 28.3 Meds Allergies and Home Medications Allergies Allergy/AdvReac Type Severity Reaction Status Date / Time meperidine HCl [From Demerol] AdvReac Severe VOMITING Verified 05/03/21 13:57 sumatriptan [From Imitrex] AdvReac Intermediate heart Verified 05/03/21 13:57 pounding sumatriptan succinate AdvReac Intermediate heart Verified 05/03/21 13:57 [From Imitrex] pounding naratriptan AdvReac Mild arm Verified 05/03/21 13:57 weakness and fatigue Home Medication Medication Instructions Recorded ascorbic acid (vitamin C) 500 mg 500 mg PO DAILY 08/23/20 capsule pqdxisl-yajpkpaikvywk-tusoxpkx 250 1 tab PO ONCE 08/23/20 mg-250 mg-65 mg tablet (Excedrin Extra Strength) loratadine 10 mg tablet 10 mg PO DAILY PRN allergy 01/08/21 symptoms #90 tabs tolterodine 2 mg capsule,extended 2 mg PO DAILY #90 caps 05/01/21 release 24 hr (Detrol LA) hydrochlorothiazide 25 mg tablet 25 mg PO DAILY #90 tabs 05/03/21 lisinopril 30 mg tablet 30 mg PO DAILY #90 tabs 05/03/21 rizatriptan 10 mg disintegrating See Rx Instructions PO .COMPLEX #9 05/03/21 tablet tabs Current Visit Medications: Current Medications Generic Name Dose Route Start Last Admin Trade Name Freq PRN Reason Stop Dose Admin Sodium Chloride 1,000 mls @ 150 mls/hr 09/27/21 12:00 09/27/21 11:55 Saline 1000ml Bag IV 150 mls/hr INFUSION FARHAD Administration PFSH Active Problems Active Problems: Problem Status Onset Code GERD without esophagitis K21.9 Chronic low back pain M54.5, G89.29 Migraine headache G43.909 Essential hypertension I10 Posterior vaginal wall prolapse N81.6 Medical History Medical History (Updated 05/03/21 @ 14:33 by Radha Britton MD) History of COVID-19 (~02/2021) no complications Hyperlipidemia Pancolonic diverticulosis Surgical History Surgical History (Updated 05/03/21 @ 14:21 by Radha Britton MD) History of bilateral tubal ligation (~10/2004) and endometrial ablation History of suburethral sling procedure (~05/2003) By Dr. Kapoor Normal colonoscopy (~09/2020) Tobacco Smoking/Tobacco Use Status: Never Passive smoking exposure: Yes Second hand exposure: Yes Alcohol Alcohol Intake: current Alcohol intake frequency: holidays/special occasions only Alcohol type: wine Substance Use Substance use: Never Substance use type: does not use Prental History History 6 Para Hx # Term Pregnancies Multiple births Hx # Pregnancies Ectopic pregnancies AB induced Hx Number of Living Children 5 AB spontaneous 1 Vital Signs and Lab Results Vital Signs Most Recent Vital Signs in EMR: Most Recent Vital Signs Temp Pulse Resp BP Pulse Ox 35.3 C L 87 23 79/49 L 98 09/27/21 11:20 09/27/21 12:15 09/27/21 12:15 09/27/21 12:15 09/27/21 11:29 Lab Results Result Diagrams: 09/27/21 11:40 09/27/21 11:40 Blood Type / Crossmatch: Patient ABO/Rh A Positive 09/27/21 Antibody Screen NEGATIVE 09/27/21 Crossmatch See Detail 09/27/21 Complete Blood Count: White Blood Count 13.15 10^3/uL (4.4-10.8) H 09/27/21 11:40 Red Blood Count 4.66 10^6/uL (3.93-5.22) 09/27/21 11:40 Hemoglobin 13.6 g/dL (11.2-15.7) 09/27/21 11:40 Hematocrit 39.8 % (36.0-46.0) 09/27/21 11:40 Platelet Count 399 10^3/uL (130-400) 09/27/21 11:40 Complete Metabolic Panel: Sodium Level 142 mmol/L (136-145) 09/27/21 11:40 Potassium Level 3.9 mmol/L (3.5-5.1) 09/27/21 11:40 Chloride Level 104 mmol/L (98-107) 09/27/21 11:40 Carbon Dioxide Level 26.4 mmol/L (21.0-32.0) 09/27/21 11:40 Blood Urea Nitrogen 18 mg/dL (7-18) 09/27/21 11:40 Creatinine 0.9 mg/dL (0.55-1.02) 09/27/21 11:40 Estimated GFR/1.73 m2 >= 60.00 (mL/min/1.73m2) 09/27/21 11:40 Magnesium Level 1.8 mg/dL (1.8-2.4) 09/27/21 11:40 Calcium Level 8.8 mg/dL (8.5-10.1) 09/27/21 11:40 Albumin 3.5 g/dL (3.4-5.0) 09/27/21 11:40 Glucose Level 166 mg/dL (74-106) H 09/27/21 11:40 Liver Function Panel: Alanine Aminotransferase (ALT/SGPT) 21 U/L (14-59) 09/27/21 11: 40 Aspartate Amino Transf (AST/SGOT) 19 U/L (15-37) 09/27/21 11:40 Coagulation Panel: INR International Normalized Ratio 1.0 (0.9-1.1) 09/27/21 11:4 0 Prothrombin Time 10.2 sec (9.3-11.0) 09/27/21 11:40 Activated Partial Thromboplast Time 19.9 sec (21.0-27.5) L 09/27/21 11:40 Cardiac Panel: Troponin I < 50 ng/L (<or=60) 09/27/21 Arterial Blood Gas: No Data to Display Venous Blood Gas: No Data to Display Pancreas Panel: No Data to Display Thyroid Panel: No Data to Display Infectious Disease: Coronavirus (COVID-19)(PCR) Pending 09/27/21 11:58 Coronavirus 2019 Source Nasal/Nares 09/27/21 11:58 Blood Cultures: No Data to Display Toxicology Panel: No Data to Display Imaging and Studies Imaging and Studies Study information below may be from another EMR and interpreted by another provider. Please see original notes in EMR for more complete details. EKG Summary: 09/2021: sinus tach, LBBB Anesthesia Assessment and Plan Anesthesia History Personal History: No History of Anesthesia Complications Family History: No Family History of Anesthesia Complications Exercise Tolerance Exercise Tolerance: Metabolic Equivalents>4 Cardiac & Pulmonary Exam Cardiac Exam: Normal S1/S2 Heart Sounds Pulmonary Exam: Clear Bilateral Breath Sounds Implantable Cardiac Device Does patient have a Pacemaker or an ICD?: No Airway Exam Known Difficult Airway: No Mallampati Class: 2 Mouth Opening: Normal (> 3cm) Thyromental Distance: Greater than 3 cm Neck Range of Motion: Full ROM Neck Circumference: Normal Teeth Condition: Normal Dentition ASA Classification ASA Score: ASA 2 Emergency Case?: Yes NPO Status NPO Status: Full Stomach Anesthesia Plan Resuscitation Status: Full Code Anesthesia Technique: General Anesthesia Airway Planned: Endotracheal Tube Monitors Used: Standard Monitors, Arterial Line (+/-) and Central Line (-/+) Preoperative Comments:: 66 yo female for EGD for upper GI bleed, currently in the ED getting blood, vomiting blood.
[2021-09-27 12:35] LABS: COVID-19 PCR Negative (Negative)
--- NOTE | 2021-09-27 12:52 | DI.RAD_ITS ---
Exam(s) XR PORTABLE CHEST AP EXAM: XR PORTABLE CHEST AP CLINICAL HISTORY: vomiting blood, r/o free air TECHNIQUE: 2D digital imaging was performed. COMPARISON: No exams were available for comparison FINDINGS: LUNGS: Clear. No pleural abnormality seen. HEART: Normal. AORTA: Normal. BONES: Unremarkable for age. Soft tissues: Unremarkable. IMPRESSION: No acute findings. DATA REPOSITORY: RADIATION DOSE DELIVERED:
[2021-09-27] MEDS: PANTOPRAZOLE 80 MG in Normal Saline 100 ML 10 MG IV ×2 (13:12→14:53)
[2021-09-27] MEDS: ELECTROLYTE-R SOLUTION 1,000 ML 30 ML IV (13:32)
--- NOTE | 2021-09-27 13:38 | W.PM.HP.N ---
Date of service: 09/27/21 Time of Service: 13:38 Assessment and Plan Assessment and plan (1) GERD without esophagitis: Status: Acute Assessment and plan: Patient is being taken for emergent EGD. She needs to be done under general anesthesia. A PPI drip was started as well. Informed consent is obtained for the procedural (explained in simple layman's terms that the pt. and/or family could understand) explaining risks vs benefits and alternatives to the procedure and consequences if we do not do the procedure and need/rational for the procedure. Risks include but are not limited to: bleeding, infection, perforation of esophagus, stomach, colon, small intestines, bronchus or trachea, or PTX. This would necessitate emergency surgery to repair the damage w/ possible ostomy; and other associated complications w/ the required surgery. Also complications of anesthesia including aspiration, SD/CVA/. If we cannot control this endoscopically and then laparotomy may need to be considered and she has consented for this as well. Patient responded well to resuscitative efforts and has had no signs of recurrent Pain/nausea/emesis. She will be admitted to ICU postprocedural. 60 minutes was spent in acute care and resuscitation of patient, in conjunction with Dr. Hansen (2) Chronic low back pain: Status: Chronic (3) Migraine headache: Status: Chronic Qualifiers: Migraine type: unspecified Status migrainosus presence: without status migrainosus Intractability: not intractable Qualified Code(s): G43.909 - Migraine, unspecified, not intractable, without status migrainosus (4) Essential hypertension: Status: Chronic (5) Posterior vaginal wall prolapse: Status: Chronic (6) MENDOZA (stress urinary incontinence, female): Status: Inactive (7) Hyperlipidemia: Qualifiers: Hyperlipidemia type: moderate mixed hyperlipidemia not requiring statin therapy Qualified Code(s): E78.2 - Mixed hyperlipidemia (8) Pancolonic diverticulosis: (9) Duodenal ulcer: Status: Acute History of Present Illness Consults Requesting physician: Deborah Hansen Narrative: Patient is a 56-year-old female who was in her normal state of good health today. She woke up this morning with nausea and not feeling good. He had an episode of hematemesis at home. She came into the ER had large volume of hematemesis, and syncopal episodes. She has a history of migraines and takes 2-4 Excedrin a day. She does not use caffeinated beverages. She does not smoke tobacco or THC products. She does not use alcohol. She does not take any other NSAID products. She has been eating a lot of tomatoes and notes that her reflux has been worse lately. She has a history of reflux that she is only treating with Tums. She takes at least 1 Tums a day. She describes her reflux as epigastric pain and contents coming up into the esophagus. She denies having an ulcer in the past. She denies any black tarry stools. She denies epigastric pain currently. She was hypotensive upon admission. She has been resuscitated and currently has a MAP greater than 60. She has received TXA and PPI and Reglan. She is being emergently taken to the OR for EGD and possible laparotomy if we cannot control the bleeding with endoscopy. Risks include but are not limited to: Bleeding, infection, perforation, aspiration, hematochezia, pneumonia and blood Hernia, and risk of damage to bowel, blood vessels, bladder, and other. Review of Systems All systems reviewed & are unremarkable except as noted in HPI and below PFSH All Active Problems (Updated 09/27/21 @ 20:50 by Sharon Manley DO) Duodenal ulcer (Acute) Probably due to Excedrin GERD without esophagitis (Acute) Chronic low back pain (Chronic) right sided piriformis; managed with stretching, exercises, OTC meds. Migraine headache (Chronic) Essential hypertension (Chronic) Posterior vaginal wall prolapse (Chronic) Medical History History of COVID-19 (~02/2021) no complications Hyperlipidemia Pancolonic diverticulosis Surgical History History of bilateral tubal ligation (~10/2004) and endometrial ablation History of suburethral sling procedure (~05/2003) By Dr. Kapoor Normal colonoscopy (~09/2020) Family History Mother Heart disease Pacemaker Father , at 66 of CHF Essential hypertension Heart disease first SD age 40 Hyperlipidemia Myocardial infarction Triple bypass age 44; frontal lobe aneurysm age 64, chf heart failure age 66 Brain aneurysm Stroke Sister Heart disease Hyperlipidemia Sister No problems noted. Sister No problems noted. Brother Heart disease Quintuple bypass Brother Heart disease S/p PCI Brother , at 14mo Complete trisomy 21 syndrome Brother No problems noted. Son Asthma Daughter Asthma Ulcerative colitis Daughter Asthma Daughter Asthma Daughter Asthma Maternal Grandfather , age 76 Myocardial infarction Heart disease Maternal Grandmother , age 52 Hodgkin's disease Paternal Grandfather , age 70 Heart disease Myocardial infarction Paternal Grandmother , age 70ish Stroke Social History Smoking/Tobacco Use Status: Never Second Hand Exposure: Yes Smoking risk assessment performed?: Yes Alcohol Intake: current Alcohol Intake frequency: holidays/special occasions only Alcohol type: wine Drug use: Never Substance use type: does not use Household members: spouse, children and adopted family Number of Children: 6 number of grandchildren: 12 current occupation: Works as a seamstress and tailor. Pets and animals: Yes Pets and animals: cat(s) and fish Sexually active: Yes Do you think of yourself as: straight/heterosexual Current gender identity: female What is your relationship status?: How often do you talk on the phone with friends or family?: twice per week How often do you get together with friends or relatives?: once per week How often do you attend yazidism or jainism services?: 4 or more times per year Do you belong to any clubs or organized social groups?: no Panel score (0-1 are the most socially isolated patients): 3 What type of physical activity do you participate in: walking, aerobic and weight lifting Duration: 15-30 minutes/day Frequency: 3-4 times per week Essie/Gnosticist: Denominational Special essie needs: No Seatbelt use: always Helmet use: Yes Helmet use: sometimes Drive intox or ride w/intox minibus driver: No Do you feel safe at home: Yes Do you feel safe in your relationship?: Yes Female Reproductive History Menstrual Menopause type: natural Date of menopause: 02/10/08 History History 6 Para Hx # Term Pregnancies Multiple births Hx # Pregnancies Ectopic pregnancies AB induced Hx Number of Living Children 5 AB spontaneous 1 Meds Allergies and Home Medications Allergies Allergy/AdvReac Type Severity Reaction Status Date / Time meperidine HCl [From Demerol] AdvReac Severe VOMITING Verified 05/03/21 13:57 sumatriptan [From Imitrex] AdvReac Intermediate heart Verified 05/03/21 13:57 pounding sumatriptan succinate AdvReac Intermediate heart Verified 05/03/21 13:57 [From Imitrex] pounding naratriptan AdvReac Mild arm Verified 05/03/21 13:57 weakness and fatigue Home Medications Medication Instructions Recorded Confirmed Type ascorbic acid (vitamin C) 500 mg 500 mg PO DAILY 08/23/20 09/27/21 History capsule jgwzoim-umgxdxvguvlbg-cuoflubf 250 1 tab PO ONCE 08/23/20 09/27/21 History mg-250 mg-65 mg tablet (Excedrin Extra Strength) loratadine 10 mg tablet 10 mg PO DAILY PRN allergy 01/08/21 09/27/21 Rx symptoms #90 tabs tolterodine 2 mg capsule,extended 2 mg PO DAILY #90 caps 05/01/21 09/27/21 Rx release 24 hr (Detrol LA) hydrochlorothiazide 25 mg tablet 25 mg PO DAILY #90 tabs 05/03/21 09/27/21 Rx lisinopril 30 mg tablet 30 mg PO DAILY #90 tabs 05/03/21 09/27/21 Rx rizatriptan 10 mg disintegrating See Rx Instructions PO .COMPLEX #9 05/03/21 09/27/21 Rx tablet tabs Exam Narrative Exam Narrative: PHYSICAL EXAM GENERAL APPEARANCE: Alert, healthy appearance, oriented, in no acute distress HEAD, EYES, EARS, NECK, THROAT: Head is normocephalic, pupils equal, round, reactive to light and accommodation, ocular movement intact, sclera clear and no jaundice. ?Dentition intact. No sore throat.? No jaw pain. LUNGS: normal respiration/nl chest excursion. ?Clear to auscultation B/l no R/R/W ?HEART: Regular rate and rhythm, EXTREMITY: No edema or cyanosis? no leg pain, redness, swelling.? No IV infiltration ABDOMEN: non tender to palpation, no masses or distention, no hernias. Normal bowel sounds. She currently denies any abdominal pain NEURO: no focal neuro deficits. Results Labs Result diagrams: 09/27/21 20:10 09/27/21 11:40 Labs: Laboratory Results - last 24 hr 09/27/21 09/27/21 09/27/21 11:40 11:40 11:40 WBC 13.15 H RBC 4.66 Hgb 13.6 Hct 39.8 MCV 85 MCH 29.2 MCHC 34.2 RDW 12.3 Plt Count 399 MPV 9.4 Immature Gran % 0.4 Neutrophils % 61.6 Lymphocytes % 25.0 Monocytes % 7.0 Eosinophils % 5.7 Basophils % 0.3 Nucleated RBC % 0.0 Absolute Neutrophils 8.10 H Absolute Lymphocytes 3.29 Absolute Monocytes 0.92 H Absolute Eosinophils 0.75 H Absolute Basophils 0.04 PT 10.2 INR 1.0 APTT 19.9 L Sodium 142 Potassium 3.9 Chloride 104 Carbon Dioxide 26.4 Anion Gap 11.6 H BUN 18 Creatinine 0.9 Estimated GFR/1.73 m2 >= 60.00 Glucose 166 H Calcium 8.8 Magnesium 1.8 Total Bilirubin 0.3 AST 19 ALT 21 Alkaline Phosphatase 55 Troponin I < 50 Total Protein 7.0 Albumin 3.5 COVID-19 Source SARS-CoV-2 (PCR) Patient ABO/Rh Antibody Screen Crossmatch 09/27/21 09/27/21 11:40 11:58 WBC RBC Hgb Hct MCV MCH MCHC RDW Plt Count MPV Immature Gran % Neutrophils % Lymphocytes % Monocytes % Eosinophils % Basophils % Nucleated RBC % Absolute Neutrophils Absolute Lymphocytes Absolute Monocytes Absolute Eosinophils Absolute Basophils PT INR APTT Sodium Potassium Chloride Carbon Dioxide Anion Gap BUN Creatinine Estimated GFR/1.73 m2 Glucose Calcium Magnesium Total Bilirubin AST ALT Alkaline Phosphatase Troponin I Total Protein Albumin COVID-19 Source Nasal/Nares SARS-CoV-2 (PCR) Negative Patient ABO/Rh A Positive Antibody Screen NEGATIVE Crossmatch See Detail Last Vital Signs Temp 37.0 C 09/27/21 12:58 Pulse 89 09/27/21 13:02 Resp 21 09/27/21 13:02 BP 149/131 H 09/27/21 13:02 Pulse Ox 98 09/27/21 12:58 PAWSS Have you Been Recently Intoxicated or Drunk Within the Last 30 days?: No Have you Ever Experienced Previous Episodes of Alcohol Withdrawal?: No Have you ever Experienced Withdrawal Seizures?: No Have you ever Experienced Delirium Tremens(DT)s?: No Have you ever undergone Alcohol Rehabilitation Treatment (i.e, inpt ot outpatient treatment programs)?: No Have you ever Experienced Blackouts?: No Have you ever Combined Alcohol with other Downers within the last 90 days?: No Have you ever Combined Alcohol with any other Substance of Abuse during the last 90 days?: No Positive Blood Alcohol level on Presentation? [PCS.BAL]: No Evidence of Increased Autonomic Activity (i.e. HR>120, tremor, sweating, agitation, nausea)?: No Result: 0
--- NOTE | 2021-09-27 13:52 | ESO_PTH ---
PATIENT: Pushpa Menchaca LOC: U#:[id number] AGE/SX: 66/F ROOM: 230 RE09/27/[address]: Sharon Manley : 1955 BED: A DIS: 09/29/2021 SPEC #: [id number] RECD: 09/27/21 16:10 STATUS: LYSSA REQ #: [id number] ROSANNE: 09/27/21 13:[address]: Sharon Manley DEPT: Surgical Specimen RECD BY: Jodi Montoya ENTERED: 09/27/21 16:10 SP TYPE: Eso JORDAN DR: Radha Britton Tissues: 1 - STOMACH BIOPSY 2 - ESOPHAGUS BIOPSY Procedures: GROSS AND MICRO LEVEL 4 Comments: [id number]
--- NOTE | 2021-09-27 14:09 | ENDO_ITS ---
Date of service: 09/27/21 Time of Service: 14:09 Endoscopy Report DATE OF PROCEDURE: 09/27/21 PRE-OP DIAGNOSIS: acute hematemasis POST-OP DIAGNOSIS: other (duodenal ulcer- anterior wall) SURGEON: Sharon Manley ANESTHESIA TYPE: General LMA/ETT ESTIMATED BLOOD LOSS: 0 PATHOLOGY: other COMPLICATIONS: None DISPOSITION: ICU PROCEDURE DESCRIPTION: After informed consent was obtained the patient was take to the procedure room and placed in a supine position. Monitors were applied and a time out was done. The patients name, date of , procedure type, allergies to medications and metal in their body was reviewed. GETA is administered per the dept of anethesia. Right block is placed the gastroscope was advanced through the oropharynx which was grossly normal into the esophagus. The proximal and mid- esophagus was normal. In the distal esophagus there was no: Erosions, varices, diverticula, or stricture apparent. The scope was advanced into the stomach and through the pylorus into the 3rd portion of the duodenum. There was edema and narrowing with in the duodenal bulb. There is a ulceration in the anterior portion of the duodenal wall. There is minimal red blood. There is no signs of any active bleeding. Due to the edema and narrowing, it was not amendable to injection or cauterization. There did not appear to be a visible vessel or a dominant area of bleeding. I did not feel that any intervention was necessary at this time. The scope was retracted into the stomach. There is old blood within the body of the stomach. This is irrigated. There is no signs of active bleeding within the body of the stomach. She has moderate gastritis radiating from the antrum in a striped fashion. Biopsies are taken of the greater curvature and the GE junction. All specimen is retrieved and no bleeding is noted. The scope was retroflexed. The cardia and fundus were noted to be normal. The scope was retracted back into the esophagus and biopsies were done of the GE junction. The scope was removed and the patient was woken up and danielle en back to PACU.
[2021-09-27 14:31] LABS: HCT 44.6 % (36.0-46.0); HGB 15.3 g/dL (11.2-15.7)
--- NOTE | 2021-09-27 14:50 | W.ANESPOSTOP ---
Postoperative Evaluation Date, Time and Location Date Performed: 09/27/21 Time Performed: 14:50 Patient Location: Intensive Care Unit Vital Signs Most Recent Imported Vital Signs: Most Recent Vital Signs Temp Pulse Resp BP Pulse Ox 37.4 C 82 25 H 131/60 94 09/27/21 14:18 09/27/21 14:31 09/27/21 14:31 09/27/21 14:31 09/27/21 14:31 Pain Score Most Recent Pain Score: Most Recent Pain Score Pain Level 4 09/27/21 11:35 Assessment Mental Status: Awake (Alert & Oriented to Patient Baseline) Airway and Respiratory Function: Patent airway with normal (patient baseline) respiratory exam Cardiovascular Function: Hemodynamically Stable Hydration Status: Adequately Hydrated Nausea & Vomiting: No Nausea or Vomiting Pain: Pt. Denies Any Pain Peripheral Nerve Block: Patient did not receive a nerve block
[2021-09-27] MEDS: Sucralfate 1 GM TAB PO ×2 (14:58→19:49)
--- NOTE | 2021-09-27 19:15 | NUR.NOTE ---
Nursing Note: Day RN contacted at this time d/t transfusion not documented as completed. RN reported by text that that unit of blood was completed at 1400 in PACU per [employer] report given to her at admission. Documented for her based on her stated end time. Reviewed ED order for 4 units, day RN states MD aware 3 given and wants 4th held. Has scheduled H&H tonight and will update plan at that time.
[2021-09-27] MEDS: IRON SUCROSE COMPLEX 200 MG in Normal Saline 100 ML 400 MG IVPB (19:48)
[2021-09-27 20:19] LABS: HCT 42.9 % (36.0-46.0); HGB 14.8 g/dL (11.2-15.7)
--- NOTE | 2021-09-27 21:01 | W.PM.PROGNOT ---
Date of Service Date of service: 09/27/21 Time of Service: 17:00 Subjective Subjective Interval history since last seen: Patient is seen and examined. She is doing well since her EGD. She has a mild sore throat. She is not having any further nausea or abdominal discomfort. She reports a mild headache. She has only taken the Maxalt once or twice for headaches she takes Excedrin daily for headaches. I did discuss with her that she is probably going to develop a rebound headache from the lack of caffeine meds and the Excedrin. We can use Tylenol and Maxalt and Phenergan for migraines. No more caffeine or aspirin or NSAIDs. The patient is doing well post-op. Their pain is well controlled. They are having no nausea or vomiting. The pt is not having any chest pain or SOB, productive cough; no calf pain or swelling. The pt is making good urine. The pt pain is adequately controlled. The case was discussed with nursing and patient?s progress reviewed. All of the pt's home medications were addressed and adjusted accordingly for their oral intact status. HEENT: no jaundice. no eye pain/drainage/redness/swelling. Mild sore throat Cardio- NSR no chest pain, BP stable. Pulm: no sob or productive cough. no hemoptysis Incision- clean/dry. Dressing intact no excessive bleeding or drainage I discussed with the patient and/or there family about the findings in surgery and the pt's progress. We reviewed expectations for progress in the hospital; what the pt could expect for recovery time and length of stay. We discussed the importance of walking and pulmonary toilet to avoid blood clots and pneumonia. Continue current plans for pulmonary toilet, GI and DVT prophylaxis. We shall continue the current plan for pain management as it is at an appropriate level, and working well for the pt. Appropriate measures will be taken for constipation prevention, and this was also reviewed with the pt. The wound care plan was reviewed with nursing as well. see orders Objective Last Vital Signs Temp 37.4 C 09/27/21 14:35 Pulse 91 H 09/27/21 17:31 Resp 20 09/27/21 17:31 BP 151/57 H 09/27/21 17:31 Pulse Ox 96 09/27/21 16:02 Laboratory Results - last 24 hr 09/27/21 09/27/21 09/27/21 11:40 11:40 11:40 WBC 13.15 H RBC 4.66 Hgb 13.6 Hct 39.8 MCV 85 MCH 29.2 MCHC 34.2 RDW 12.3 Plt Count 399 MPV 9.4 Immature Gran % 0.4 Neutrophils % 61.6 Lymphocytes % 25.0 Monocytes % 7.0 Eosinophils % 5.7 Basophils % 0.3 Nucleated RBC % 0.0 Absolute Neutrophils 8.10 H Absolute Lymphocytes 3.29 Absolute Monocytes 0.92 H Absolute Eosinophils 0.75 H Absolute Basophils 0.04 PT 10.2 INR 1.0 APTT 19.9 L Sodium 142 Potassium 3.9 Chloride 104 Carbon Dioxide 26.4 Anion Gap 11.6 H BUN 18 Creatinine 0.9 Estimated GFR/1.73 m2 >= 60.00 Glucose 166 H Calcium 8.8 Magnesium 1.8 Total Bilirubin 0.3 AST 19 ALT 21 Alkaline Phosphatase 55 Troponin I < 50 Total Protein 7.0 Albumin 3.5 COVID-19 Source SARS-CoV-2 (PCR) Patient ABO/Rh Antibody Screen Crossmatch 09/27/21 09/27/21 09/27/21 11:40 11:58 14:25 WBC RBC Hgb 15.3 Hct 44.6 MCV MCH MCHC RDW Plt Count MPV Immature Gran % Neutrophils % Lymphocytes % Monocytes % Eosinophils % Basophils % Nucleated RBC % Absolute Neutrophils Absolute Lymphocytes Absolute Monocytes Absolute Eosinophils Absolute Basophils PT INR APTT Sodium Potassium Chloride Carbon Dioxide Anion Gap BUN Creatinine Estimated GFR/1.73 m2 Glucose Calcium Magnesium Total Bilirubin AST ALT Alkaline Phosphatase Troponin I Total Protein Albumin COVID-19 Source Nasal/Nares SARS-CoV-2 (PCR) Negative Patient ABO/Rh A Positive Antibody Screen NEGATIVE Crossmatch See Detail 09/27/21 20:10 WBC RBC Hgb 14.8 Hct 42.9 MCV MCH MCHC RDW Plt Count MPV Immature Gran % Neutrophils % Lymphocytes % Monocytes % Eosinophils % Basophils % Nucleated RBC % Absolute Neutrophils Absolute Lymphocytes Absolute Monocytes Absolute Eosinophils Absolute Basophils PT INR APTT Sodium Potassium Chloride Carbon Dioxide Anion Gap BUN Creatinine Estimated GFR/1.73 m2 Glucose Calcium Magnesium Total Bilirubin AST ALT Alkaline Phosphatase Troponin I Total Protein Albumin COVID-19 Source SARS-CoV-2 (PCR) Patient ABO/Rh Antibody Screen Crossmatch PAWSS Have you Been Recently Intoxicated or Drunk Within the Last 30 days?: No Have you Ever Experienced Previous Episodes of Alcohol Withdrawal?: No Have you ever Experienced Withdrawal Seizures?: No Have you ever Experienced Delirium Tremens(DT)s?: No Have you ever undergone Alcohol Rehabilitation Treatment (i.e, inpt ot outpatient treatment programs)?: No Have you ever Experienced Blackouts?: No Have you ever Combined Alcohol with other Downers within the last 90 days?: No Have you ever Combined Alcohol with any other Substance of Abuse during the last 90 days?: No Positive Blood Alcohol level on Presentation? [PCS.BAL]: No Evidence of Increased Autonomic Activity (i.e. HR>120, tremor, sweating, agitation, nausea)?: No Result: 0
[2021-09-27] MEDS: Lisinopril 10 MG TAB 15 MG PO (23:17)
[2021-09-28] VITALS (51 sets, daily range): BP systolic 111–179; BP diastolic 50–90; PULSE 67–114; RESP 12–43; TEMP 36.5–38.4; O2SAT 90–96
[2021-09-28] MEDS: Sucralfate 1 GM TAB PO ×4 (02:34→20:33)
[2021-09-28] MEDS: Normal Saline 1,000 ML 100 ML IV (05:19)
[2021-09-28 06:27] LABS: HCT 40.9 % (36.0-46.0); HGB 14.4 g/dL (11.2-15.7); MCH 29.1 pg (27.0-33.0); MCHC 35.2 % (32.0-36.0); MCV 83 fL (80-95); MPV 9.5 fL (8.0-11.0); Platelet Count 245 10^3/uL (130-400); RBC 4.95 10^6/uL (3.93-5.22); RDW 13.5 % (11.7-14.6); RDW-SD 40.6 fL; WBC 13.21 10^3/uL (4.4-10.8)
[2021-09-28 06:57] LABS: Iron 315 ug/dL (50-170)
[2021-09-28 06:58] LABS: Anion Gap 9.9 mmol/L (3-11); BUN 11 mg/dL (7-18); CO2 25.1 mmol/L (21.0-32.0); CREATININE 0.5 mg/dL (0.55-1.02); Calcium 8.3 mg/dL (8.5-10.1); Chloride 107 mmol/L (98-107); Ferritin 80 ng/mL (8-252); Glucose 99 mg/dL (74-106); Potassium 3.1 mmol/L (3.5-5.1); Sodium 142 mmol/L (136-145)
--- NOTE | 2021-09-28 09:51 | INITIAL_ITS ---
- If Service Date Differs Date of service: 09/28/21 Time of Service: 09:51 Care Management Initial Assess REASON FOR HOSPITALIZATION:: upper GI bleed PAST MEDICAL HISTORY/PAST SURGICAL HISTORY:: All Active Problems (Updated 09/27/21 @ 20:50 by Sharon Manley DO). Duodenal ulcer (Acute). Probably due to Excedrin. GERD without esophagitis (Acute). Chronic low back pain (Chronic). right sided piriformis; managed with stretching, exercises, OTC meds. Migraine headache (Chronic). Essential hypertension (Chronic). Posterior vaginal wall prolapse (Chronic). Medical History . History of COVID-19 (~02/2021). no complications. Hyperlipidemia. Pancolonic diverticulosis. Surgical History . History of bilateral tubal ligation (~10/2004). and endometrial ablation. History of suburethral sling procedure (~05/2003). By Dr. Kapoor. Normal colonoscopy (~09/2020) PREVIOUS FUNCTIONAL STATUS/SOCIAL/FAMILY SUPPORTS:: Jacqueline lives in an apartment in [place] with her Isra and 17 year old son. They have lived in the same home for 30 years and raised 6 children there. They informed [facility] that it is within walking distance of [facility] where all of their children asttended school. Their children are very supportive and the family is close. Jacqueline is independent at baseline and does not receive any community services. 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 CURRENT FUNCTIONAL STATUS:: Jacqueline was sitting up in bed visiting with her when CM met with them. She was agreeable to conversation and pleasant in interaction. Jacqueline and Isra both expressed concern about the cost of her hospital stay. They have insurance but indicated they recently had a large bill (over $6,000) for orthopedic surgery. Jacqueline has [facility] Medicare replacement plan as well as Medicaid. She shared that they also have [facility] Financiual Assist. Lorr ie requested copies of the [employer] forms which were provided by [employer]. CM will assist with completion if requested to do so. ADVANCE DIRECTIVES:: none on file Has patient been provided with info about the portal/API?: Yes Did the patient sign up for the portal?: Yes (previously) CODE STATUS:: Full Code INSURANCE COVERAGE / FINANCIAL ISSUES:: [employer] Medicare Replacement. Medicaid CURRENT HOME/COMMUNITY SERVICES/EQUIPMENT:: none PRIMARY CARE PHYSICIAN:: Radha Britton POTENTIAL DISCHARGE NEEDS:: follow up with surgeon and PCP PATIENT/FAMILY EDUCATION NEEDS:: Review of discharge instructions, limitations, diet, medications, discuss Ask Me Three TRANSPORTATION:: via private vehicle with PLAN:: Jacqeuline will likely be discharged home with no new services. She will folllow up with her community providers and plan of care and transport with family. CM will continue to assess for ongoing discharge needs.
[2021-09-28] MEDS: PANTOPRAZOLE 80 MG in Normal Saline 100 ML 10 MG IV ×2 (10:34→20:47)
--- NOTE | 2021-09-28 11:54 | PGE_ITS ---
Date of Service Date of service: 09/28/21 Time of Service: 11:54 Assessment and Plan Assessment and plan (1) Duodenal ulcer: Status: Acute Assessment and plan: - Currently patient is pain-free. She has no further bleeding episodes. Her hemoglobin is remained stable. -We will maintain her on the PPI drip and Carafate for another 24 hours. -Resume hypertension medication -She is doing well this afternoon we can advance her diet and change her to MedSurg status. (2) GERD without esophagitis: Status: Acute (3) Chronic low back pain: Status: Chronic (4) Migraine headache: Status: Chronic Qualifiers: Migraine type: unspecified Status migrainosus presence: without status migrainosus Intractability: not intractable Qualified Code(s): G43.909 - Migraine, unspecified, not intractable, without status migrainosus (5) Essential hypertension: Status: Chronic (6) Hyperlipidemia: Qualifiers: Hyperlipidemia type: moderate mixed hyperlipidemia not requiring statin therapy Qualified Code(s): E78.2 - Mixed hyperlipidemia (7) Posterior vaginal wall prolapse: Status: Chronic (8) MENDOZA (stress urinary incontinence, female): Status: Inactive (9) Pancolonic diverticulosis: Subjective Subjective Interval history since last seen: Pt is doing well. no headaches. No CP or SOB. no productive cough. no dysuria. no leg pain or swelling. She still having some melanotic stools. She had x1 episode of nausea and emesis but there was no blood. She is currently tolerating clears. She is not having any abdominal pain or nausea currently. Hemoglobin has remained stable. No HURST today. Exam Narrative Exam Narrative: PHYSICAL EXAM GENERAL APPEARANCE: Alert, healthy appearance, oriented, in no acute distress SKIN: No rashes.? No breakdown HYDRATION: Well hydrated HEAD, EYES, EARS, NECK, THROAT: Head is normocephalic, pupils equal, round, reactive to light and accommodation, ocular movement intact, sclera clear and no jaundice. ?Dentition intact. mild sore throat.? No jaw pain. LUNGS: normal respiration/nl chest excursion. ?Clear to auscultation B/l no R/R/W ?HEART: Regular rate and rhythm, EXTREMITY: No edema or cyanosis? no leg pain, redness, swelling.? No IV infiltration ABDOMEN: non tender to palpation, Normal bowel sounds NEURO: no focal neuro deficits. Objective Last Vital Signs Temp 38.4 C H 09/28/21 07:00 Pulse 84 09/28/21 09:01 Resp 14 09/28/21 09:01 BP 149/68 H 09/28/21 09:01 Pulse Ox 94 09/28/21 07:00 Laboratory Results - last 24 hr 09/27/21 09/27/21 09/27/21 11:40 11:40 11:40 WBC RBC Hgb Hct MCV MCH MCHC RDW Plt Count MPV PT 10.2 INR 1.0 APTT 19.9 L Sodium 142 Potassium 3.9 Chloride 104 Carbon Dioxide 26.4 Anion Gap 11.6 H BUN 18 Creatinine 0.9 Estimated GFR/1.73 m2 >= 60.00 Glucose 166 H Calcium 8.8 Magnesium 1.8 Iron Ferritin Total Bilirubin 0.3 AST 19 ALT 21 Alkaline Phosphatase 55 Troponin I < 50 Total Protein 7.0 Albumin 3.5 COVID-19 Source SARS-CoV-2 (PCR) Patient ABO/Rh A Positive Antibody Screen NEGATIVE Crossmatch See Detail 09/27/21 09/27/21 09/27/21 11:58 14:25 20:10 WBC RBC Hgb 15.3 14.8 Hct 44.6 42.9 MCV MCH MCHC RDW Plt Count MPV PT INR APTT Sodium Potassium Chloride Carbon Dioxide Anion Gap BUN Creatinine Estimated GFR/1.73 m2 Glucose Calcium Magnesium Iron Ferritin Total Bilirubin AST ALT Alkaline Phosphatase Troponin I Total Protein Albumin COVID-19 Source Nasal/Nares SARS-CoV-2 (PCR) Negative Patient ABO/Rh Antibody Screen Crossmatch 09/28/21 09/28/21 09/28/21 05:55 05:55 05:55 WBC 13.21 H RBC 4.95 Hgb 14.4 Hct 40.9 MCV 83 MCH 29.1 MCHC 35.2 RDW 13.5 Plt Count 245 MPV 9.5 PT INR APTT Sodium 142 Potassium 3.1 L Chloride 107 Carbon Dioxide 25.1 Anion Gap 9.9 BUN 11 Creatinine 0.5 L Estimated GFR/1.73 m2 >= 60.00 Glucose 99 Calcium 8.3 L Magnesium Iron 315 H Ferritin 80 Total Bilirubin AST ALT Alkaline Phosphatase Troponin I Total Protein Albumin COVID-19 Source SARS-CoV-2 (PCR) Patient ABO/Rh Antibody Screen Crossmatch PAWSS Have you Been Recently Intoxicated or Drunk Within the Last 30 days?: No Have you Ever Experienced Previous Episodes of Alcohol Withdrawal?: No Have you ever Experienced Withdrawal Seizures?: No Have you ever Experienced Delirium Tremens(DT)s?: No Have you ever undergone Alcohol Rehabilitation Treatment (i.e, inpt ot outpatient treatment programs)?: No Have you ever Experienced Blackouts?: No Have you ever Combined Alcohol with other Downers within the last 90 days?: No Have you ever Combined Alcohol with any other Substance of Abuse during the last 90 days?: No Positive Blood Alcohol level on Presentation? [PCS.BAL]: No Evidence of Increased Autonomic Activity (i.e. HR>120, tremor, sweating, agit ation, nausea)?: No Result: 0
[2021-09-28] MEDS: ACETAMINOPHEN 1,000 MG/100 ML BTL 400 MG IVPB (15:26)
[2021-09-29] MEDS: Sucralfate 1 GM TAB PO ×3 (01:04→13:08)
[2021-09-29 03:21] VITALS: BP 138/77; PULSE 76; RESP 18; TEMP 36.7; O2SAT 94
[2021-09-29] MEDS: Normal Saline 1,000 ML 30 ML IV (06:06)
[2021-09-29] MEDS: PANTOPRAZOLE 80 MG in Normal Saline 100 ML 10 MG IV (06:07)
[2021-09-29 06:54] LABS: HCT 39.1 % (36.0-46.0); HGB 13.8 g/dL (11.2-15.7); MCH 29.3 pg (27.0-33.0); MCHC 35.3 % (32.0-36.0); MCV 83 fL (80-95); MPV 9.5 fL (8.0-11.0); Platelet Count 246 10^3/uL (130-400); RBC 4.71 10^6/uL (3.93-5.22); RDW 13.4 % (11.7-14.6); RDW-SD 40.9 fL; WBC 9.44 10^3/uL (4.4-10.8)
[2021-09-29 07:37] VITALS: BP 149/71; PULSE 81; RESP 16; TEMP 36.8; O2SAT 95
[2021-09-29] MEDS: Lisinopril 10 MG TAB 30 MG PO (08:06)
[2021-09-29] MEDS: ACETAMINOPHEN 1,000 MG/100 ML BTL 400 MG IVPB (08:13)
--- NOTE | 2021-09-29 13:33 | W.PM.PROGNOT ---
Date of Service Date of service: 09/29/21 Time of Service: 13:33 Assessment and Plan Assessment and plan (1) Duodenal ulcer: Status: Acute Assessment and plan: Patient will be discharged to home today. See discharge summary (2) GERD without esophagitis: Status: Acute (3) Chronic low back pain: Status: Chronic (4) Migraine headache: Status: Chronic Qualifiers: Intractability: not intractable Migraine type: unspecified Status migrainosus presence: without status migrainosus Qualified Code(s): G43.909 - Migraine, unspecified, not intractable, without status migrainosus (5) Essential hypertension: Status: Chronic (6) MENDOZA (stress urinary incontinence, female): Status: Inactive Subjective Subjective Interval history since last seen: Pt is doing well. no headaches. No CP or SOB. no productive cough. no dysuria. no leg pain or swelling. She has had no blood in her stools for the past 24 hours. She is having minimal abdominal pain. She has had no nausea. She has had no vomiting. She is tolerating a soft bland diet. Exam Resp Effort & Inspection: normal respiratory effort and able to speak in complete sentences Auscultation: clear to auscultation bilaterally Cardio Rate: regular rate Rhythm: regular rhythm GI Palpation: soft and nontender Auscultation: normal bowel sounds Objective Last Vital Signs Temp 36.8 C 09/29/21 07:37 Pulse 81 09/29/21 07:37 Resp 16 09/29/21 07:37 BP 149/71 H 09/29/21 07:37 Pulse Ox 95 09/29/21 07:37 Laboratory Results - last 24 hr 09/29/21 06:05 WBC 9.44 RBC 4.71 Hgb 13.8 Hct 39.1 MCV 83 MCH 29.3 MCHC 35.3 RDW 13.4 Plt Count 246 MPV 9.5 PAWSS Have you Been Recently Intoxicated or Drunk Within the Last 30 days?: No Have you Ever Experienced Previous Episodes of Alcohol Withdrawal?: No Have you ever Experienced Withdrawal Seizures?: No Have you ever Experienced Delirium Tremens(DT)s?: No Have you ever undergone Alcohol Rehabilitation Treatment (i.e, inpt ot outpatient treatment programs)?: No Have you ever Experienced Blackouts?: No Have you ever Combined Alcohol with other Downers within the last 90 days?: No Have you ever Combined Alcohol with any other Substance of Abuse during the last 90 days?: No Positive Blood Alcohol level on Presentation? [PCS.BAL]: No Evidence of Increased Autonomic Activity (i.e. HR>120, tremor, sweating, agitation, nausea)?: No Result: 0
--- NOTE | 2021-09-29 13:35 | W.PM.DS.N ---
Date of service: 09/29/21 Time of Service: 13:35 DS: Diagnosis Discharge Diagnosis (1) Duodenal ulcer: Status: Acute (2) GERD without esophagitis: Status: Acute (3) Chronic low back pain: Status: Chronic (4) Migraine headache: Status: Chronic (5) Essential hypertension: Status: Chronic (6) MENDOZA (stress urinary incontinence, female): Status: Inactive Discharge Plan Disposition Patient Disposition: HOME Condition: Critical Discharge Details Admit Date/Time: 09/27/21 14:02 Admit Provider: Sharon Manley Attending Provider: Sharon Manley Primary Care Provider: Radha Britton Hospital Course Hospital Course: see addendum Home Meds and New Rx's Prescriptions: New sucralfate [Carafate] 1 gram tablet 1 g PO QACHS 42 Days Qty: 168 12RF pantoprazole [Protonix] 40 mg tablet,delayed release (DR/EC) 40 mg PO DAILY Qty: 90 4RF Continued tolterodine [Detrol LA] 2 mg capsule,extended release 24hr 2 mg PO DAILY Qty: 90 4RF lisinopril 30 mg tablet 30 mg PO DAILY Qty: 90 3RF hydrochlorothiazide 25 mg tablet 25 mg PO DAILY Qty: 90 3RF rizatriptan 10 mg tablet,disintegrating See Rx Instructions PO .COMPLEX MDD 2 tabs Qty: 9 12RF Dose Instruction: take 1 tab at onset of headache; if no relief may repeat 1 tab in 2hr; max = 3 tabs/day (24hr) PO Rx Instructions: take 1 tab at onset of headache; if no relief may repeat 1 tab in 2hr; max 2tabs/day loratadine 10 mg tablet 10 mg PO DAILY PRN (Reason: allergy symptoms) Qty: 90 4RF Discontinued ascorbic acid (vitamin C) 500 mg capsule 500 mg PO DAILY Excedrin Extra Strength 250-250-65 mg tablet 1 tab PO ONCE Discharge Instructions Additional Instructions: -No driving x48 hrs -Follow-up with Dr. Manley on - my office will call on Thursday to set up appt. [phone] -soft diet: No beef/pork raw vegetables x1 -week. Cooked vegetables are fine -no straining to move bowels. if you do not move your bowels daily take a dose of OTC Miralax -It is ok to shower. No bathe, soaking, swimming or hot tubs -You may find that your appetite is smaller. Eat 3-6 small meals throughout the day. It is important to drink lots of water after surgery, 6-10 glasses a day. -We do want you up walking, at least 5-6 times per day. This is very important to prevent pneumonia and blood clots. You can climb stairs, take them slowly. -No lifting over 5 pounds for 2 wks -You may find that you are very tired after surgery- this is normal. -Continue with lifestyle modifications: no alcohol, tobacco products. NO: Aspirin or NSAID's (ibuprofen, Motrin, Naprosyn, aleve, etc). Avoid: soda pop/any carbonated beverages for 1 week. NO: caffeine (including tea & chocolate), and acidic foods, (tomatoes, citrus, onions, garlic, mint) spicy foods. Eat fried/fatty foods sparingly for 1 week. -F/u w/ Dr. Dickson in 2 wks for further management of headaches. There are many different medications that can be used. Activity:: see above Equipment/Supplies:: No Equipment Needed Diet:: bland DS: Summary Time Spent with Patient providing and/or coordinating discharge services: Less than 30 minutes Status at Discharge Functional status at discharge: independent ambulation Overall status at discharge: patient is progressing back to baseline Mental Status: mental status grossly normal Speech and Movement: speech and movement normal Mood: congruent mood Affect: normal affect Exam Psych Mental Status: mental status grossly normal Speech and Movement: speech and movement normal Mood: congruent mood Affect: normal affect DS: Data Vitals/I&O Vitals and I&O: Vital Signs Temperature 36.8 C 09/29/21 07:37 Temperature Source Tympanic 09/29/21 07:37 Pulse 81 09/29/21 07:37 Pulse Rhythm Regular 09/29/21 08:43 Pulse 71 09/28/21 17:01 Respiratory Rate 16 09/29/21 07:37 Respiratory Effort Non-Labored 09/29/21 08:43 Respiratory Depth Normal 09/29/21 08:43 Respiratory Pattern Normal 09/29/21 08:43 Blood Pressure 149/71 H 09/29/21 07:37 Blood Pressure Mean 77 09/28/21 17:01 Blood Pressure Position Sitting 09/28/21 12:11 Pulse Oximetry 95 09/29/21 07:37 Oxygen Delivery Method Room Air 09/29/21 07:37 Oxygen Flow Rate 0 09/29/21 07:37 Pain Level 2 09/29/21 08:13 Intake & Output 09/28/21 09/29/21 09/29/21 23:59 11:59 23:59 Intake Total 1208.333 / 2768.333 1085.000 / 1617.500 532.5 / 1617.500 Output Total 2250 / 3450 1250 / 1250 Balance -1041.667 / -681.667 -165.000 / 367.500 532.5 / 367.500 Weight 76.3 kg Intake: IV 708.333 / 2268.333 685.000 / 967.500 282.5 / 967.500 Oral 500 / 500 400 / 650 250 / 650 Output: Urine 1750 / 2950 1250 / 1250 Stool 500 / 500 Other: Urine Color Yellow Yellow Urine Appearance Clear Clear Urine Odor Normal Normal Stool Size Large Small Stool Characteristics Liquid Soft Brown Brown Voiding Methods Toilet Toilet Data Completed and Pending Labs on day of discharge: Labs from last 24 hours 09/29/21 06:05 WBC 9.44 RBC 4.71 Hgb 13.8 Hct 39.1 MCV 83 MCH 29.3 MCHC 35.3 RDW 13.4 Plt Count 246 MPV 9.5 PFSH All Active Problems (Updated 09/27/21 @ 20:50 by Sharon Manley DO) Duodenal ulcer (Acute) Probably due to Excedrin GERD without esophagitis (Acute) Chronic low back pain (Chronic) right sided piriformis; managed with stretching, exercises, OTC meds. Migraine headache (Chronic) Essential hypertension (Chronic) Posterior vaginal wall prolapse (Chronic) Medical History History of COVID-19 (~02/2021) no complications Hyperlipidemia Pancolonic diverticulosis Surgical History History of bilateral tubal ligation (~10/2004) and endometrial ablation History of suburethral sling procedure (~05/2003) By Dr. Kapoor Normal colonoscopy (~09/2020) Family History Mother Heart disease Pacemaker Father , at 66 of CHF Essential hypertension Heart disease first ID age 40 Hyperlipidemia Myocardial infarction Triple bypass age 44; frontal lobe aneurysm age 65, chf heart failure age 66 Brain aneurysm Stroke Sister Heart disease Hyperlipidemia Sister No problems noted. Sister No problems noted. Brother Heart disease Quintuple bypass Brother Heart disease S/p PCI Brother , at 14mo Complete trisomy 21 syndrome Brother No problems noted. Son Asthma Daughter Asthma Ulcerative colitis Daughter Asthma Daughter Asthma Daughter Asthma Maternal Grandfather , age 76 Myocardial infarction Heart disease Maternal Grandmother , age 52 Hodgkin's disease Paternal Grandfather , age 70 Heart disease Myocardial infarction Paternal Grandmother , age 70ish Stroke Social History Smoking/Tobacco Use Status: Never Second Hand Exposure: Yes Smoking risk assessment performed?: Yes Alcohol Intake: current Alcohol Intake frequency: holidays/special occasions only Alcohol type: wine Drug use: Never Substance use type: does not use Household members: spouse, children and adopted family Number of Children: 6 number of grandchildren: 12 current occupation: Works as a seamstress and tailor. Pets and animals: Yes Pets and animals: cat(s) and fish Sexually active: Yes Do you think of yourself as: straight/heterosexual Current gender identity: female What is your relationship status?: How often do you talk on the phone with friends or family?: twice per week How often do you get together with friends or relatives?: once per week How often do you attend druze or islam services?: 4 or more times per year Do you belong to any clubs or organized social groups?: no Panel score (0-1 are the most socially isolated patients): 3 What type of physical activity do you participate in: walking, aerobic and weight lifting Duration: 15-30 minutes/day Frequency: 3-4 times per week Essie/Sikh: Spiritism Special essie needs: No Seatbelt use: always Helmet use: Yes Helmet use: sometimes Drive intox or ride w/intox automobile drivers: No Do you feel safe at home: Yes Do you feel safe in your relationship?: Yes Female Reproductive History Menstrual Menopause type: natural Date of menopause: 02/10/08 History History 6 Para Hx # Term Pregnancies Multiple births Hx # Pregnancies Ectopic pregnancies AB induced Hx Number of Living Children 5 AB spontaneous 1
--- NOTE | 2021-09-29 14:21 | PDOC.CMDIS ---
- If Service Date Differs Date of service: 09/29/21 Time of Service: 14:21 LACE Index Scoring Tool - Questions: Length of Stay (in days): 2 Acuity (Admit via E.D.?): Yes E.D. Visits: 1 - Answers: Total Score: 6 Risk of Readmission: Low Risk Care Management Discharge Reason for Hospitalization: upper GI bleed Discharge Plan: Jacqueline will be discharged home with no new services. She will folllow up with her community providers and plan of care and transport with family. Patient/Family Education Needs: Review of discharge instructions, limitations, diet, medications, discuss Ask Me Three
== END 2021-09-29 14:13 | disposition home or self-care (01) | DRG 379 ==
LOC: ER 12:37 → SURG 13:38 → ICU 14:21 → MS 09-29 13:41
PROVIDERS: Admitting Provider Surgery; Emergency Provider Physician Assistant; PCP Family Medicine; Visit Provider Surgery
PROC: 0DJ68ZZ Inspection of Stomach, Via Natural or Artificial Opening Endoscopic (ICD-10-PCS; CPT 43235; principal; 2021-09-27 12:45)
DX: K26.0 Acute duodenal ulcer with hemorrhage (principal); I95.9 Hypotension, unspecified; K29.70 Gastritis, unspecified, without bleeding; I10 Essential (primary) hypertension; G43.909 Migraine, unspecified, not intractable, without status migrainosus; K21.9 Gastro-esophageal reflux disease without esophagitis; G89.29 Other chronic pain; M54.50 Low back pain, unspecified; K57.30 Diverticulosis of large intestine without perforation or abscess without bleeding; E78.2 Mixed hyperlipidemia; N81.6 Rectocele; K22.89 Other specified disease of esophagus; K31.89 Other diseases of stomach and duodenum
CPT/HCPCS: 43239; 36415; 36430; 80048; 80053; 85027; 86850; 86900; 86901; 86920; 87635; 88305; 93005; 96361; 96365; 96367; 96375; 99222; 99231; 99238; 99291; 71045; 82728; 83540; 83735; 84484; 85014; 85018; 85025; 85610; 85730; 93010; J0131; J1756; J2250; J2405; J2704; P9016

== ENCOUNTER 2021-10-03 03:25 | Outpatient (CLI) | payer MEDICARE, MEDICAID, SELFPAY ==
[2021-10-03 12:38] LABS: Abs Immature Grans 0.06 10^3/uL (0.0-0.06); Absolute Basophil Count 0.02 10^3/uL (0.0-0.2); Absolute Lymphocyte Count 1.56 10^3/uL (1.2-3.4); Absolute Monocyte Count 1.28 10^3/uL (0.1-0.8); Absolute Neutrophil Count 8.18 10^3/uL (1.2-6.7); Basophils % 0.2; Eosinophils % 0.4; HCT 41.1 % (36.0-46.0); HGB 14.1 g/dL (11.2-15.7); Immature Grans % 0.5; MCH 29.1 pg (27.0-33.0); MCHC 34.3 % (32.0-36.0); MCV 85 fL (80-95); Monocytes % 11.5; Neutrophils % 73.4; Platelet Count 287 10^3/uL (130-400); RBC 4.84 10^6/uL (3.93-5.22); RDW 12.8 % (11.7-14.6); RDW-SD 38.6 fL; WBC 11.15 10^3/uL (4.4-10.8)
[2021-10-03 12:45] LABS: Absolute Eosinophil Count 0.04 10^3/uL (0.0-0.7)
[2021-10-03 13:07] LABS: Iron 26 ug/dL (50-170); Total Iron Binding Capacity 380 ug/dL (250-450); Transferrin Sat 7 % (15-50)
[2021-10-03 13:10] LABS: Ferritin 197 ng/mL (8-252); Folate 19.3 ng/mL (8.6-20.0)
== END 2021-10-03 03:26 | disposition home or self-care (01) ==
LOC: LBO 03:25
PROVIDERS: PCP Family Medicine; Visit Provider Surgery
DX: G43.909 Migraine, unspecified, not intractable, without status migrainosus (principal); I95.9 Hypotension, unspecified; K21.9 Gastro-esophageal reflux disease without esophagitis; K26.9 Duodenal ulcer, unspecified as acute or chronic, without hemorrhage or perforation; R58 Hemorrhage, not elsewhere classified
CPT/HCPCS: 36415; 99213; 82728; 82746; 83540; 83550; 85025

== ENCOUNTER 2021-10-17 03:08 | Outpatient (CLI) | payer MEDICARE, MEDICAID, SELFPAY ==
[2021-10-17 10:06] LABS: Abs Immature Grans 0.02 10^3/uL (0.0-0.06); Absolute Basophil Count 0.01 10^3/uL (0.0-0.2); Absolute Eosinophil Count 0.13 10^3/uL (0.0-0.7); Absolute Monocyte Count 0.42 10^3/uL (0.1-0.8); Absolute Neutrophil Count 2.93 10^3/uL (1.2-6.7); Basophils % 0.2; Eosinophils % 2.3; HCT 41.6 % (36.0-46.0); Immature Grans % 0.4; Lymphocytes % 37.4; MCH 28.7 pg (27.0-33.0); MCHC 33.7 % (32.0-36.0); MCV 85 fL (80-95); MPV 8.8 fL (8.0-11.0); Monocytes % 7.5; Neutrophils % 52.2; Platelet Count 370 10^3/uL (130-400); RBC 4.87 10^6/uL (3.93-5.22); RDW 12.4 % (11.7-14.6); RDW-SD 38.9 fL; WBC 5.61 10^3/uL (4.4-10.8)
[2021-10-17 10:39] LABS: Ferritin 125 ng/mL (8-252)
== END 2021-10-17 03:09 | disposition home or self-care (01) ==
LOC: LBO 03:08
PROVIDERS: PCP Family Medicine; Visit Provider Surgery
DX: G43.909 Migraine, unspecified, not intractable, without status migrainosus (principal); G89.29 Other chronic pain; K21.9 Gastro-esophageal reflux disease without esophagitis; K26.9 Duodenal ulcer, unspecified as acute or chronic, without hemorrhage or perforation; M54.59 Other low back pain
CPT/HCPCS: 36415; 82728; 85025

== ENCOUNTER 2021-11-12 06:16 | Day surgery (SDC) | payer MEDICARE, MEDICAID, SELFPAY ==
[2021-11-12 06:15] VITALS: BP 142/80; PULSE 62; RESP 18; TEMP 36.4; O2SAT 98
[2021-11-12] MEDS: Lactated Ringers 1,000 ML 80 ML IV (06:48)
--- NOTE | 2021-11-12 07:00 | W.ANESPRE ---
General Info Date of Service Date Performed: 11/12/21 Height: 5 ft 5 in Weight: 74.8 kg Body Mass Index (BMI): 27.4 Surgical Procedure: Operation Date: 11/12/21 07:35 Proposed Procedure Side Surgeon p Gastroscopy w/Biopsy Jeremiah Mehta MD Actual Procedure Side Surgeon p Gastroscopy w/Biopsy Not Applicable Jeremiah Mehta MD Pre-Op Diagnosis Post-Op Diagnosis duodenal ulcer Meds Allergies and Home Medications Allergies Allergy/AdvReac Type Severity Reaction Status Date / Time meperidine HCl [From Demerol] AdvReac Severe VOMITING Verified 11/12/21 06:17 sumatriptan [From Imitrex] AdvReac Intermediate heart Verified 11/12/21 06:17 pounding sumatriptan succinate AdvReac Intermediate heart Verified 11/12/21 06:17 [From Imitrex] pounding naratriptan AdvReac Mild arm Verified 11/12/21 06:17 weakness and fatigue Home Medication Medication Instructions Recorded loratadine 10 mg tablet 10 mg PO DAILY PRN allergy 01/08/21 symptoms #90 tabs tolterodine 2 mg capsule,extended 2 mg PO DAILY #90 caps 05/01/21 release 24 hr (Detrol LA) hydrochlorothiazide 25 mg tablet 25 mg PO DAILY #90 tabs 05/03/21 lisinopril 30 mg tablet 30 mg PO DAILY #90 tabs 05/03/21 rizatriptan 10 mg disintegrating See Rx Instructions PO .COMPLEX #9 05/03/21 tablet tabs pantoprazole 40 mg tablet,delayed 40 mg PO DAILY #90 tabs 09/29/21 release (Protonix) sucralfate 1 gram tablet (Carafate) 1 g PO QACHS 6 weeks #168 tabs 09/29/21 Current Visit Medications: Current Medications Generic Name Dose Route Start Last Admin Trade Name Freq PRN Reason Stop Dose Admin Ringer's Solution 1,000 mls @ 80 mls/hr 11/12/21 06:00 11/12/21 06:48 IV 11/12/21 23:59 80 mls/hr INFUSION FARHAD Administration IV Miscellaneous Supplies 1 each 11/12/21 06:00 Iv Access IV 11/12/21 23:59 DIRECTED FARHAD Sodium Chloride 0 ml 11/12/21 06:00 Normal Saline Flush 10 Ml Syr IV 11/12/21 23:59 PRN PRN Sodium Chloride 0 ml 11/12/21 06:00 Normal Saline 10 Ml Vial IJ 11/12/21 23:59 DIRECTED PRN Sterile Water 0 ml 11/12/21 06:00 Water,Injection,Sterile 10 Ml Vial IJ 11/12/21 23:59 DIRECTED PRN PFSH Active Problems Active Problems: Problem Status Onset Code Essential hypertension I10 Chronic low back pain M54.5, G89.29 Posterior vaginal wall prolapse N81.6 Migraine headache G43.909 GERD without esophagitis K21.9 Duodenal ulcer K26.9 Medical History Medical History Acute bleeding History of COVID-19 (~02/2021) no complications 02/2021 Hyperlipidemia Pancolonic diverticulosis Surgical History Surgical History History of bilateral tubal ligation (~10/2004) and endometrial ablation History of suburethral sling procedure (~05/2003) By Dr. Kapoor Normal colonoscopy (~09/2020) Tobacco Smoking/Tobacco Use Status: Never Passive smoking exposure: Yes Second hand exposure: Yes Alcohol Alcohol Intake: current Alcohol intake frequency: holidays/special occasions only Alcohol type: wine Substance Use Substance use: Never Substance use type: does not use Prental History History 6 Para Hx # Term Pregnancies Multiple births Hx # Pregnancies Ectopic pregnancies AB induced Hx Number of Living Children 5 AB spontaneous 1 Vital Signs and Lab Results Vital Signs Most Recent Vital Signs in EMR: Most Recent Vital Signs Temp Pulse Resp BP Pulse Ox 36.4 C L 62 18 142/80 H 98 11/12/21 06:15 11/12/21 06:15 11/12/21 06:15 11/12/21 06:15 11/12/21 06:15 Lab Results Blood Type / Crossmatch: No Data to Display Complete Blood Count: White Blood Count 5.61 10^3/uL (4.4-10.8) 10/17/21 09:50 Red Blood Count 4.87 10^6/uL (3.93-5.22) 10/17/21 09:50 Hemoglobin 14.0 g/dL (11.2-15.7) 10/17/21 09:50 Hematocrit 41.6 % (36.0-46.0) 10/17/21 09:50 Platelet Count 370 10^3/uL (130-400) 10/17/21 09:50 Complete Metabolic Panel: No Data to Display Liver Function Panel: No Data to Display Coagulation Panel: No Data to Display Cardiac Panel: No Data to Display Arterial Blood Gas: No Data to Display Venous Blood Gas: No Data to Display Pancreas Panel: No Data to Display Thyroid Panel: No Data to Display Infectious Disease: No Data to Display Blood Cultures: No Data to Display Toxicology Panel: No Data to Display Imaging and Studies Imaging and Studies Study information below may be from another EMR and interpreted by another provider. Please see original notes in EMR for more complete details. EKG Summary: 09/2021: sinus tach, LBBB Anesthesia Assessment and Plan Anesthesia History Personal History: No History of Anesthesia Complications Family History: No Family History of Anesthesia Complications Exercise Tolerance Exercise Tolerance: Metabolic Equivalents>4 Pertinent Negatives Pertinent Negatives: No Symptoms of GERD Cardiac & Pulmonary Exam Cardiac Exam: Normal S1/S2 Heart Sounds Pulmonary Exam: Clear Bilateral Breath Sounds Implantable Cardiac Device Does patient have a Pacemaker or an ICD?: No Airway Exam Known Difficult Airway: No Mallampati Class: 2 Mouth Opening: Normal (> 3cm) Thyromental Distance: Greater than 3 cm Neck Range of Motion: Full ROM Neck Circumference: Normal Teeth Condition: Normal Dentition ASA Classification ASA Score: ASA 2 Emergency Case?: No NPO Status NPO Status: NPO Clears >2 hours, Solids >8 hours Anesthesia Plan Resuscitation Status: Full Code Anesthesia Technique: General Anesthesia Airway Planned: Natural Airway Monitors Used: Standard Monitors Preoperative Comments:: Significant neck pain postoperative last visit 09/27: 66 yo female for EGD for upper GI bleed, currently in the ED getting blood, vomiting blood.
--- NOTE | 2021-11-12 07:19 | W.PM.DSUDISC ---
Discharge Plan Disposition Patient Disposition: HOME Condition: Good Discharge Details Reason For Visit: EGD Attending Provider: Jeremiah Mehta Primary Care Provider: Radha Britton Home Meds and New Rx's Prescriptions: Continued tolterodine [Detrol LA] 2 mg capsule,extended release 24hr 2 mg PO DAILY Qty: 90 4RF lisinopril 30 mg tablet 30 mg PO DAILY Qty: 90 3RF hydrochlorothiazide 25 mg tablet 25 mg PO DAILY Qty: 90 3RF rizatriptan 10 mg tablet,disintegrating See Rx Instructions PO .COMPLEX MDD 2 tabs Qty: 9 12RF Dose Instruction: take 1 tab at onset of headache; if no relief may repeat 1 tab in 2hr; max = 3 tabs/day (24hr) PO Rx Instructions: take 1 tab at onset of headache; if no relief may repeat 1 tab in 2hr; max 2tabs/day loratadine 10 mg tablet 10 mg PO DAILY PRN (Reason: allergy symptoms) Qty: 90 4RF sucralfate [Carafate] 1 gram tablet 1 g PO QACHS 42 Days Qty: 168 12RF pantoprazole [Protonix] 40 mg tablet,delayed release (DR/EC) 40 mg PO DAILY Qty: 90 4RF Discharge Instructions Instructions: Upper Endoscopy (DC) Additional Instructions: 1. If tolerated, consume a soft, low fiber diet for 1-2 days. [address] Do not drive, drink alcohol, operate machinery, make critical decisions, or do activities that require coordination or balance for 24 hours. 3. You may experience a sore throat for 24 to 48 hours. You may use throat lozenges or gargle with warm salt water to relieve the discomfort. 4. Because air was put into your stomach during the procedure, you may experience some belching. 5. Go directly to the emergency room if you notice any of the following: Develop chills (warm to touch), or if you have a thermometer and your temperature is above 101 Difficulty breathing or difficultly swallowing Persistent vomiting Severe abdominal pain, other than gas cramps Severe chest pain Black, tarry stools Any bleeding ? exceeding one tablespoon 6. Call your physician if the site where your intravenous was started becomes red, swollen, painful, and warm to touch. 7. Your physician has reviewed your pre-procedure medications. Please continue to take those medications as previously ordered. You will be given specific information/education regarding any changes to your medications before leaving. Referrals: Radha Britton MD [Primary Care Provider] - (EGD shows resolution of duodenal ulcer disease.) Activity:: Activity as Tolerated Diet:: As Tolerated DS: Diagnosis Discharge Diagnosis (1) Duodenal ulcer: Status: Acute Asessment and Plan: This appears resolved. I think it would be fine to try to wean off of the proton pump inhibitor, perhaps using a H2 davina or discontinuing altogether. I will call with results of the biopsies
[2021-11-12 07:32] VITALS: BMI 27.4
--- NOTE | 2021-11-12 07:39 | HPE_ITS ---
Date of service: 11/12/21 Time of Service: 07:39 Assessment and Plan Assessment and plan (1) Duodenal ulcer: Status: Acute Assessment and plan: Proceed with follow-up EGD today. We discussed the risks and benefits of the procedure, and she provided a new informed consent. History of Present Illness History of Present Illness Chief Complaint: Abdominal pain Narrative: Lorena is a 66-year-old woman with a past medical history of a bleeding duodenal ulcer. She has been treated with proton pump inhibitor therapy, and has a favorable response. She is here for repeat evaluation of her duodenal lesion. PFSH All Active Problems Essential hypertension (Chronic) Chronic low back pain (Chronic) right sided piriformis; managed with stretching, exercises, OTC meds. Posterior vaginal wall prolapse (Chronic) Migraine headache (Chronic) GERD without esophagitis (Acute) Duodenal ulcer (Acute) Probably due to Excedrin Medical History Acute bleeding History of COVID-19 (~02/2021) no complications 02/2021 Hyperlipidemia Pancolonic diverticulosis Surgical History History of bilateral tubal ligation (~10/2004) and endometrial ablation History of suburethral sling procedure (~05/2003) By Dr. Kapoor Normal colonoscopy (~09/2020) Family History Mother Heart disease Pacemaker Father , at 66 of CHF Essential hypertension Heart disease first AL age 40 Hyperlipidemia Myocardial infarction Triple bypass age 44; frontal lobe aneurysm age 64, chf heart failure age 66 Brain aneurysm Stroke Sister Heart disease Hyperlipidemia Sister No problems noted. Sister No problems noted. Brother Heart disease Quintuple bypass Brother Heart disease S/p PCI Brother , at 14mo Complete trisomy 21 syndrome Brother No problems noted. Son Asthma Daughter Asthma Ulcerative colitis Daughter Asthma Daughter Asthma Daughter Asthma Maternal Grandfather , age 76 Myocardial infarction Heart disease Maternal Grandmother , age 52 Hodgkin's disease Paternal Grandfather , age 70 Heart disease Myocardial infarction Paternal Grandmother , age 70ish Stroke Social History Smoking/Tobacco Use Status: Never Second Hand Exposure: Yes Smoking risk assessment performed?: Yes Alcohol Intake: current Alcohol Intake frequency: holidays/special occasions only Alcohol type: wine Drug use: Never Substance use type: does not use Household members: spouse, children and adopted family Number of Children: 6 number of grandchildren: 12 current occupation: Works as a seamstress and tailor. Pets and animals: Yes Pets and animals: cat(s) and fish Sexually active: Yes Do you think of yourself as: straight/heterosexual Current gender identity: female What is your relationship status?: How often do you talk on the phone with friends or family?: twice per week How often do you get together with friends or relatives?: once per week How often do you attend druze or buddhism services?: 4 or more times per year Do you belong to any clubs or organized social groups?: no Panel score (0-1 are the most socially isolated patients): 3 What type of physical activity do you participate in: walking, aerobic and weight lifting Duration: 15-30 minutes/day Frequency: 3-4 times per week Essie/Christian: Spiritism Special essie needs: No Seatbelt use: always Helmet use: Yes Helmet use: sometimes Drive intox or ride w/intox school boat driver: No Do you feel safe at home: Yes Do you feel safe in your relationship?: Yes Female Reproductive History Menstrual Menopause type: natural Date of menopause: 02/10/08 History History 6 Para Hx # Term Pregnancies Multiple births Hx # Pregnancies Ectopic pregnancies AB induced Hx Number of Living Children 5 AB spontaneous 1 Meds Allergies and Home Medications Allergies Allergy/AdvReac Type Severity Reaction Status Date / Time meperidine HCl [From Demerol] AdvReac Severe VOMITING Verified 11/12/21 06:17 sumatriptan [From Imitrex] AdvReac Intermediate heart Verified 11/12/21 06:17 pounding sumatriptan succinate AdvReac Intermediate heart Verified 11/12/21 06:17 [From Imitrex] pounding naratriptan AdvReac Mild arm Verified 11/12/21 06:17 weakness and fatigue Home Medications Medication Instructions Recorded Confirmed Type loratadine 10 mg tablet 10 mg PO DAILY PRN allergy 01/08/21 11/12/21 Rx symptoms #90 tabs tolterodine 2 mg capsule,extended 2 mg PO DAILY #90 caps 05/01/21 11/12/21 Rx release 24 hr (Detrol LA) hydrochlorothiazide 25 mg tablet 25 mg PO DAILY #90 tabs 05/03/21 11/12/21 Rx lisinopril 30 mg tablet 30 mg PO DAILY #90 tabs 05/03/21 11/12/21 Rx rizatriptan 10 mg disintegrating See Rx Instructions PO .COMPLEX #9 05/03/21 11/11/21 Rx tablet tabs pantoprazole 40 mg tablet,delayed 40 mg PO DAILY #90 tabs 09/29/21 11/12/21 Rx release (Protonix) sucralfate 1 gram tablet (Carafate) 1 g PO QACHS 6 weeks #168 tabs 09/29/21 11/12/21 Rx Exam Const General: cooperative, healthy appearing and comfortable HENMT Head: normal to inspection Eyes General: appearance normal, both eyes and all related structures Neck Neck: normal visual inspection and full ROM Resp Effort & Inspection: normal respiratory effort Cardio Jugular venous pressure: no JVD Rate: regular rate Rhythm: regular rhythm Heart Sounds: S1 normal and S2 normal GI Inspection: normal to inspection and non-distended Palpation: soft and nontender Results Last Vital Signs Temp 97.5 F L 11/12/21 06:15 Pulse 62 11/12/21 06:15 Resp 18 11/12/21 06:15 BP 142/80 H 11/12/21 06:15 Pulse Ox 98 11/12/21 06:15
--- NOTE | 2021-11-12 08:00 | STOM_PTH ---
PATIENT: Pushpa Menchaca LOC: [facility] U#:[id number] AGE/SX: 66/F ROOM: RE11/12/[address]: Jeremiah Mehta MD : [id number] BED: DIS: 11/12/2021 SPEC #: [id number] RECD: 11/12/21 12:16 STATUS: LYSSA RE #: [id number] ROSANNE: 11/12/21 08:[address]: Jeremiah Mehta DEPT: Surgical Specimen RECD BY: Jodi Montoya ENTERED: 11/12/21 12:17 SP TYPE: STOMACH OTHR DR: Radha Britton Tissues: 1 - BIOPSY BOWEL 2 - STOMACH BIOPSY 3 - STOMACH BIOPSY Procedures: GROSS AND MICRO LEVEL 4 Comments: [id number]
--- NOTE | 2021-11-12 08:12 | W.PM.ENDDOP ---
Date of service: 11/12/21 Time of Service: 08:12 Endoscopy Report DATE OF PROCEDURE: 11/12/21 PRE-OP DIAGNOSIS: Duodenal ulcer POST-OP DIAGNOSIS: other (Normal) PROCEDURE: Surveillance esophagogastroduodenoscopy SURGEON: Jeremiah Mehta ANESTHESIA TYPE: General:No Airway ESTIMATED BLOOD LOSS: 10 PATHOLOGY: other (Duodenal biopsy, gastric antral biopsy, gastric body biopsy) COMPLICATIONS: None DISPOSITION: same day INDICATIONS: Jose is a 66-year-old woman with a previous history of acute upper gastrointestinal hemorrhage. She underwent endoscopy that demonstrated a large duodenal ulcer that was not amenable to Endo scopic interventions. She was treated with proton pump inhibition therapy as well as sucralfate. She has had an improvement of her symptoms. FINDINGS: Normal esophagus, stomach, duodenum PROCEDURE DESCRIPTION: After the initiation of monitored anesthetic care, and with the assistance of a bite block, I advanced a standard gastroscope through the mouth past the hypopharynx and into the esophagus.? Under the direct vision of the scope, I advanced down the esophagus into the stomach.? Once I entered the stomach, I performed a brief inspection, followed by retroflexion towards the gastric cardia.? This appeared normal.? After that, I gently advanced the scope around the incisura angularis and examined the pylorus.? This also appeared normal.? Next, I advanced the scope through the pylorus into the duodenum.? The mucosa was pink and healthy appearing.? There were no abnormalities.? I was able to visualize bile draining into the duodenum through the ampulla Vater. The duodenum appeared wide open, and I did not see any sequelae of duodenal peptic ulcer disease. I did not see any swelling, or stricturing. There were no ulcers. I did perform biopsies of the first portion of the duodenum. Next, I began retracting the endoscope.? Again, I returned to the stomach which was carefully examined once again.? I performed random biopsies of the gastric antrum and body using cold forcep in a similar fashion to the duodenal biopsy. There was minimal bleeding. I then gently desufflated some of the stomach, and withdrew the endoscope into the distal esophagus. ?Finally, I withdrew the scope along the length of the esophagus taking great care to examine the entirety of the mucosa.? I did not appreciate any abnormalities.
[2021-11-12 08:15] VITALS: BP 103/66; PULSE 72; RESP 16; TEMP 36.6; O2SAT 95
--- NOTE | 2021-11-12 09:47 | W.ANESPOSTOP ---
Postoperative Evaluation Date, Time and Location Date Performed: 11/12/21 Time Performed: 08:40 Patient Location: Day Surgery Unit Vital Signs Most Recent Imported Vital Signs: Most Recent Vital Signs Temp Pulse Resp BP Pulse Ox 36.6 C 72 16 103/66 95 11/12/21 08:15 11/12/21 08:15 11/12/21 08:15 11/12/21 08:15 11/12/21 08:15 Pain Score Most Recent Pain Score: Most Recent Pain Score Pain Level 0 11/12/21 08:15 Assessment Mental Status: Awake (Alert & Oriented to Patient Baseline) Airway and Respiratory Function: Patent airway with normal (patient baseline) respiratory exam Cardiovascular Function: Hemodynamically Stable Hydration Status: Adequately Hydrated Nausea & Vomiting: No Nausea or Vomiting Pain: Pt. Denies Any Pain Peripheral Nerve Block: Patient did not receive a nerve block Postoperative Comments:: Patient with small red area to upper right lip, appears to be a split from dryness, however, aligned with edge of bite block. Patient reports this a chronic area of concern for her and has been for a period of time and not from the bite block. All questions answered, no neck pain as described from previous hospital stay. Patient cleared to be discharged from anesthesia services.
== END 2021-11-12 09:15 | disposition home or self-care (01) ==
PROVIDERS: PCP Family Medicine; Visit Provider Surgery
PROC: 0DJ68ZZ Inspection of Stomach, Via Natural or Artificial Opening Endoscopic (ICD-10-PCS; CPT 43235; principal; 2021-11-12 07:30)
DX: Z09 Encounter for follow-up examination after completed treatment for conditions other than malignant neoplasm (principal); K21.9 Gastro-esophageal reflux disease without esophagitis; I10 Essential (primary) hypertension; Z87.11 Personal history of peptic ulcer disease; K31.89 Other diseases of stomach and duodenum
CPT/HCPCS: 43239; 88305

== ENCOUNTER → 2021-11-28 09:33 | Outpatient (BNVA) | payer MEDICARE, MEDICAID, SELFPAY | PROVIDERS: PCP Family Medicine; Referring Provider Family Medicine; Visit Provider Surgery | DX: Z48.815 Encounter for surgical aftercare following surgery on the digestive system (principal); K21.9 Gastro-esophageal reflux disease without esophagitis; K26.9 Duodenal ulcer, unspecified as acute or chronic, without hemorrhage or perforation; G89.29 Other chronic pain | CPT/HCPCS: 99212; 99213 ==

== ENCOUNTER → 2022-04-30 10:34 | Outpatient (BNVA) | payer MEDICARE, SELFPAY | PROVIDERS: PCP Family Medicine; Visit Provider Nurse Practitioner Gerontology | DX: N39.41 Urge incontinence (principal) | CPT/HCPCS: 51798; 99213 ==

== ENCOUNTER 2022-05-16 02:33 | Outpatient (CLI) | payer MEDICARE, SELFPAY ==
[2022-05-16 11:34] LABS: ALT 32 U/L (14-59); AST 23 U/L (15-37); Albumin 3.9 g/dL (3.4-5.0); Alkaline Phosphatase 69 U/L (46-116); Anion Gap 10.6 mmol/L (3-11); BUN 14 mg/dL (7-18); Bilirubin, Total 0.4 mg/dL (0.2-1.0); CO2 25.4 mmol/L (21.0-32.0); CREATININE 0.6 mg/dL (0.55-1.02); Calcium 9.4 mg/dL (8.5-10.1); Calculated LDL 108 mg/dL (<100); Chloride 104 mmol/L (98-107); Cholesterol 183 mg/dL (<200); Estimated GFR 98.93 (mL/min/1.73m2); Glucose 101 mg/dL (74-106); HDL Cholesterol 47 mg/dL (40-60); Sodium 140 mmol/L (136-145); Triglyceride 142 mg/dL (<150)
[2022-05-19 10:12] LABS: Hepatitis C Ab w Rflx HCV PCR Negative (Negative)
== END 2022-05-16 02:34 | disposition home or self-care (01) ==
LOC: LBO 02:33
PROVIDERS: PCP Family Medicine; Visit Provider Family Medicine
DX: Z00.00 Encounter for general adult medical examination without abnormal findings (principal); I10 Essential (primary) hypertension; Z13.6 Encounter for screening for cardiovascular disorders
CPT/HCPCS: 36415; 80053; 80061; 86803

== ENCOUNTER 2022-05-21 00:50 | Outpatient (CLI) | payer MEDICARE, SELFPAY ==
--- NOTE | 2022-05-21 07:30 | DI.MAMMO_ITS ---
Exam(s) MAMMO SCREENING EXAM: MAMMO SCREENING CLINICAL HISTORY: screening,z12.39. TECHNIQUE: Bilateral full field digital CC and MLO mammographic images were obtained with 3D tomosyn thesis and utilizing computer aided detection (CAD). COMPARISON: Prior mammograms were reviewed. FINDINGS: There has been no significant change in the appearance and distribution of the fibroglandular tissue. Asymmetric density posteriorly in left breast on CC views unchanged from all prior studies. There are no new spiculated masses nor malignant appearing microcalcification groups. There is no significant architectural distortion nor skin thickening-retraction. IMPRESSION: No radiographic evidence of malignancy. BI-RADS Category 1 - Negative Breast Density - Category B - Scattered areas of fibroglandular density Breast density Category C or D implies that the patient has dense breast tissue. Dense breast tissue can make it harder to find cancer on a mammogram. Dense breast tissue is also associated with an incr eased risk of breast cancer. This information about the result of the mammogram report was provided to the patient to raise their awareness. Use this report when you speak with the patient about their risks for breast cancer, which includes their family history. At that time, you may recommend additional screening tests (Ultrasoun d or MRI) as these tests may add significant information. A negative radiographic report should not delay biopsy if a dominant or clinically suspicious mass is present. Up to ten percent of cancers are not identified on mammography. A negative report may reinforce clinical impression. Adenosis and dense breasts may obscure an underlying neoplasm. False positive reports average 6 to 10%. Patient will receive a letter notifying them of these results.
== END 2022-05-21 01:10 ==
LOC: DI 00:50
PROVIDERS: PCP Family Medicine; Visit Provider Family Medicine
DX: Z12.31 Encounter for screening mammogram for malignant neoplasm of breast (principal)
CPT/HCPCS: 77063; 77067

== ENCOUNTER → 2022-09-22 13:00 | Outpatient (BNVA) | payer MEDICARE, SELFPAY | PROVIDERS: PCP Family Medicine; Visit Provider Nurse Practitioner Gerontology | DX: N39.41 Urge incontinence (principal); I10 Essential (primary) hypertension | CPT/HCPCS: 51798; 99213 ==

== ENCOUNTER 2023-05-26 04:02 | Outpatient (CLI) | payer MEDICARE, SELFPAY ==
[2023-05-26 10:24] LABS: CREATININE 0.7 mg/dL (0.55-1.02); Estimated GFR 94.73 (mL/min/1.73m2); Potassium 3.6 mmol/L (3.5-5.1)
== END 2023-05-26 04:03 | disposition home or self-care (01) ==
LOC: LBO 04:02
PROVIDERS: PCP Family Medicine; Visit Provider Family Medicine
DX: I10 Essential (primary) hypertension (principal)
CPT/HCPCS: 36415; 82565; 84132

== ENCOUNTER → 2023-12-02 13:20 | Outpatient (BNVA) | payer MEDICARE, SELFPAY | PROVIDERS: PCP Family Medicine; Referring Provider Family Medicine; Visit Provider Nurse Practitioner Gerontology | DX: N39.41 Urge incontinence (principal); I10 Essential (primary) hypertension; K92.1 Melena | CPT/HCPCS: 51798; 99215 ==

== ENCOUNTER 2024-08-09 01:40 | Outpatient (CLI) | payer MEDICARE, SELFPAY ==
--- NOTE | 2024-08-09 12:29 | DI.MAMMO_ITS ---
Exam(s) MAMMO SCREENING EXAM: MAMMO SCREENING CLINICAL HISTORY: screening,Z12.39 TECHNIQUE: Mammograms were interpreted according to the usual protocol including computer analysis with CAD system, tomosynthesis and C-view imaging. COMPARISON: 2015 through 2022 FINDINGS: The breasts are composed of scattered fibroglandular densities, Breast Density category B. No suspicious masses or suspicious microcalcifications are seen. No skin thickening or abnormal axillary lymph nodes are seen. There has been no significant change from prior exams. IMPRESSION: BI-RADS Category 1, Negative mammogram Yearly screening mammography is recommended. Breast Density - Category B - There are scattered areas of fibroglandular density. Breast density Category C or D implies that the patient has dense breast tissue. Dense breast tissue can make it harder to find cancer on a mammogram. Dense breast tissue is also associated with an increased risk of breast cancer. This information about the result of the mammogram report was provided to the patient to raise their awareness. Use this report when you speak with the patient about their risks for breast cancer, which includes their family history. At that time, you may recommend additional screening tests (Ultrasound or MRI) as these tests may add significant information. A negative radiographic report should not delay biopsy if a dominant or clinically suspicious mass is present. Up to ten percent of cancers are not identified on mammography. A negative report may reinforce clinical impression. Adenosis and dense breasts may obscure an underlying neoplasm. False positive reports average 6 to 10%. Patient will receive a letter notifying them of these results.
== END 2024-08-09 02:00 ==
PROVIDERS: PCP Family Medicine; Visit Provider Family Medicine
DX: Z12.31 Encounter for screening mammogram for malignant neoplasm of breast (principal); R92.323 Mammographic fibroglandular density, bilateral breasts
CPT/HCPCS: 77063; 77067

== ENCOUNTER 2024-08-09 12:58 | Outpatient (CLI) | payer MEDICARE, SELFPAY ==
[2024-08-09 12:14] LABS: Estimated GFR 97.71 (mL/min/1.73m2); Potassium 3.7 mmol/L (3.5-5.1)
== END 2024-08-09 12:59 | disposition home or self-care (01) ==
LOC: LBO 12:59
PROVIDERS: PCP Family Medicine; Visit Provider Family Medicine
DX: I10 Essential (primary) hypertension (principal)
CPT/HCPCS: 36415; 82565; 84132

== ENCOUNTER → 2024-11-29 14:22 | Outpatient (BNVA) | payer MEDICARE, SELFPAY | PROVIDERS: PCP Family Medicine; Referring Provider Family Medicine; Visit Provider Nurse Practitioner Gerontology | DX: N32.81 Overactive bladder (principal); N39.41 Urge incontinence; I10 Essential (primary) hypertension; K92.1 Melena | CPT/HCPCS: 99214; 51798 ==